=== PATIENT | female | born 1990 | race Caucasian/White ===

== ENCOUNTER 2017-08-31 09:16 | Inpatient (IN) | payer BC ==
[2017-08-31] MEDS ORDERED: Carboprost Tromethamine 250 MCG/1 ML Amp IM PRN (12:19)
[2017-08-31] MEDS ORDERED: Butorphanol 1 MG/ML SDV IVPUSH PRN (12:19)
[2017-08-31] MEDS ORDERED: Lidocaine 1% 50 ML MDV INJECT PRN (12:19)
[2017-08-31] MEDS ORDERED: Sodium Chloride 0.9% 10 ML Syringe FLUSH PRN (12:19)
[2017-08-31] MEDS ORDERED: Sodium Chloride 0.9% 2.5 ML Syringe FLUSH PRN (12:19)
[2017-08-31] MEDS ORDERED: Tranexamic Acid 1,000 MG in Sodium Chloride 0.9% 100 ML IV PRN (12:19)
[2017-08-31] MEDS ORDERED: Nalbuphine 10 MG/1 ML Vial IVPUSH PRN (12:19)
[2017-08-31] MEDS ORDERED: Methylergonovine 0.2 MG/1 ML Amp IM PRN (12:19)
[2017-08-31] MEDS ORDERED: Misoprostol 200 MCG Tab PO PRN (12:19)
[2017-08-31] MEDS ORDERED: Water For Irrigation,Sterile 1,000 ML Container IRR PRN (12:19)
[2017-08-31] MEDS ORDERED: Misoprostol 25 MCG (1/4 of 100 MCG) Tab PO ONE (12:21)
[2017-08-31] MEDS ORDERED: Terbutaline 1 MG/ML SDV SUBCUT PRN (12:21)
[2017-08-31] MEDS ORDERED: Oxytocin/0.9 % Sodium Chloride 30 UNIT/500 ML BAG IV SCH (12:30)
[2017-08-31] MEDS ORDERED: Lactated Ringers 1,000 ML IV SCH (12:30)
[2017-08-31] MEDS: Misoprostol 25 MCG (1/4 of 100 MCG) Tab VAG SCH ×2 (13:13→13:16)
--- NOTE | 2017-08-31 13:22 | PCM.LDHP ---
L&D History of Present Illness - General Date of Service: 08/31/17 Admit Problem/Dx: Patient Status Order with Admit Dx/Problem 08/31/17 12:19 Patient Status [ADT] Routine Admission Diagnosis/Problem Admission Diagnosis/Problem Source of Information: Patient History Limitations: Reports: No Limitations - History of Present Illness Improves with: Reports: None Worsens with: Reports: None Associated Symptoms: Reports: N - Related Data Allergies/Adverse Reactions: Allergies Allergy/AdvReac Type Severity Reaction Status Date / Time No Known Allergies Allergy Verified 07/22/17 12:32 Social & Family History - Tobacco Use Smoking Status *Q: Former Smoker Used Tobacco, but Quit: Yes Month Tobacco Last Used: 2015 Second Hand Smoke Exposure: Yes - Caffeine Use Caffeine Use: Reports: Soda - Recreational Drug Use Recreational Drug Use: No H&P Review of Systems - Review of Systems: Review Of Systems: See Below General: Reports: No Symptoms HEENT: Reports: No Symptoms Pulmonary: Reports: No Symptoms Cardiovascular: Reports: No Symptoms Gastrointestinal: Reports: No Symptoms Genitourinary: Reports: No Symptoms Musculoskeletal: Reports: No Symptoms Skin: Reports: No Symptoms Psychiatric: Reports: No Symptoms Neurological: Reports: No Symptoms Hematologic/Lymphatic: Reports: No Symptoms Immunologic: Reports: No Symptoms L&D Exam - Exam Exam: See Below - Vital Signs Weight: 131.995 kg - OB Specific Contraction Intensity: Mild Movement: Active Heart Tones: Present Presentation: Vertex - Espinosa Score Espinosa Score Cervix Position: Midposition Espinosa Score Consistency: Medium [place] Score Effacement: 51-70% Espinosa Score Dilation: 1-2 cm Espinosa Score Infant's Station: -2 Espinosa Score Total: 6 - Exam General: Alert, Oriented HEENT: PERRLA, Conjunctiva Clear, EACs Clear, EOMI, Hearing Intact, Mucosa Moist & [place], Nares Patent, Normal Nasal Septum, Posterior Pharynx Clear, TMs Clear Neck: Supple, Trachea Midline Lungs: Clear to Auscultation, Normal Respiratory Effort Cardiovascular: Regular Rate, Regular Rhythm GI/Abdominal Exam: Normal Bowel Sounds, Soft, Non-Tender, No Organomegaly, No Distention, No Abnormal Bruit, No Mass, Pelvis Stable Rectal Exam: Normal Exam, Normal Rectal Tone Genitourinary: Normal external exam, Normal bimanual exam, Normal speculum exam Back Exam: Normal Inspection, Full Range of Motion Extremities: Normal Inspection, Normal Range of Motion, Non-Tender, No Pedal Edema, Normal Capillary Refill Skin: Warm, Dry, Intact Neurological: Cranial Nerves Intact, Reflexes Equal Bilateral Psychiatric: Alert, Normal Affect, Normal Mood - Patient Data Lab Results Last 24 hrs: Laboratory Results - last 24 hr 08/31/17 Range/Units 12:52 WBC 12.17 H (4.0-11.0) K/uL RBC 4.48 (4.30-5.90) M/uL Hgb 11.7 L (12.0-16.0) g/dL Hct 36.2 (36.0-46.0) % MCV 80.8 (80.0-98.0) fL MCH 26.1 L (27.0-32.0) pg MCHC 32.3 (31.0-37.0) g/dL RDW Std Deviation 42.4 (28.0-62.0) fl RDW Coeff of Enoc 14 (11.0-15.0) % Plt Count 276 (150-400) K/uL MPV 9.60 (7.40-12.00) fL Nucleated RBC % 0.0 /100WBC Nucleated RBCs # 0 K/uL Result Diagrams: 08/31/17 12:52 Problem List Initiated/Reviewed/Updated: Yes Orders Last 24hrs: Active Orders 24 hr Category Date Time Status Patient Status [ADT] Routine ADT 08/31/17 12:19 Active Bedrest Bathroom Privileges [RC] ASDIRECTED Care 08/31/17 12:21 Active Communication Order [RC] ASDIRECTED Care 08/31/17 12:21 Active Communication Order [RC] ASDIRECTED Care 08/31/17 12:21 Active Communication Order [RC] ASDIRECTED Care 08/31/17 12:21 Active Heart Tones [RC] CONTINUOUS Care 08/31/17 12:19 Active Non Stress Test [RC] PER UNIT ROUTINE Care 08/31/17 12:19 Active May Shower [RC] ASDIRECTED Care 08/31/17 12:19 Active Notify Provider [RC] PRN Care 08/31/17 12:19 Active Notify Provider [RC] PRN Care 08/31/17 12:21 Active Notify Provider [RC] PRN Care 08/31/17 12:21 Active Notify Provider [RC] STAT Care 08/31/17 12:21 Active Oxygen Therapy [RC] ASDIRECTED Care 08/31/17 12:21 Active Up ad Leydi [RC] ASDIRECTED Care 08/31/17 12:19 Active Vaginal Exam [RC] PRN Care 08/31/17 12:19 Active Vaginal Exam [RC] PRN Care 08/31/17 12:21 Active Vital Signs [RC] PER UNIT ROUTINE Care 08/31/17 12:19 Active Vital Signs [RC] PER UNIT ROUTINE Care 08/31/17 12:21 Active Regular Diet [DIET] Diet 08/31/17 Lunch Active TYPE AND SCREEN [BBK] Routine Lab 08/31/17 12:52 Received Butorphanol [Stadol] Med 08/31/17 12:19 Active 1 mg IVPUSH Q1H PRN Carboprost Tromethamine [Hemabate DS] Med 08/31/17 12:19 Active 250 mcg IM ASDIRECTED PRN Lactated Ringers [Ringers, Lactated] 1,000 ml Med 08/31/17 12:30 Active IV ASDIRECTED Lidocaine 1% [Xylocaine 1%] Med 08/31/17 12:19 Active 50 ml INJECT .ONCE PRN Methylergonovine [Methergine] Med 08/31/17 12:19 Active 0.2 mg IM ASDIRECTED PRN Misoprostol [Cytotec] Med 08/31/17 12:19 Active 200 mcg PO .ONCE PRN Misoprostol [Cytotec] Med 08/31/17 12:30 Active 25 mcg VAG .ONCE Misoprostol [Cytotec] Med 08/31/17 12:21 Active 25 mcg VAG Q4H PRN Nalbuphine [Nubain] Med 08/31/17 12:19 Active 10 mg IVPUSH Q1H PRN Oxytocin/0.9 % Sodium Chloride [Oxytocin 30 Unit/500 ML Med 08/31/17 12:30 Active -NS] 30 unit in 500 ml IV TITRATE Sodium Chloride 0.9% [Saline Flush] Med 08/31/17 12:19 Active 10 ml FLUSH ASDIRECTED PRN Sodium Chloride 0.9% [Saline Flush] Med 08/31/17 12:19 Active 2.5 ml FLUSH ASDIRECTED PRN Terbutaline [Brethine] Med 08/31/17 12:21 Active 0.25 mg SUBCUT ASDIRECTED PRN Tranexamic Acid [Cyklokapron] 1,000 mg Med 08/31/17 12:19 Active Sodium Chloride 0.9% [Normal Saline] 100 ml IV ONETIME Water For Irrigation,Sterile [Sterile Water for Med 08/31/17 12:19 Active Irrigation] 1,000 ml IRR ASDIRECTED PRN Scalp Electrode [WOMSER] Per Unit Routine Oth 08/31/17 12:19 Ordered Medication Administration Instruction [OM.PC] Q3H Oth 08/31/17 12:30 Ordered Peripheral IV Insertion Adult [OM.PC] Routine Oth 08/31/17 12:19 Ordered Resuscitation Status Routine Resus Stat 08/31/17 12:19 Ordered Medication Orders Butorphanol Tartrate (Stadol) 1 mg IVPUSH Q1H PRN PRN Reason: Pain Carboprost Tromethamine (Hemabate Ds) 250 mcg IM ASDIRECTED PRN PRN Reason: Post Hemorrhage Lactated Ringer's (Ringers, Lactated) 1,000 mls @ 150 mls/hr IV ASDIRECTED LILIA Tranexamic Acid 1,000 mg/ (Sodium Chloride) 110 mls @ 660 mls/hr IV ONETIME PRN PRN Reason: Bleeding Oxytocin/Sodium Chloride (Oxytocin 30 Unit/500 Ml-Ns) 30 unit in 500 mls @ 2 mls/hr IV TITRATE LILIA; 2 MUNITS/MIN PRN Reason: Protocol Lidocaine HCl (Xylocaine 1%) 50 ml INJECT .ONCE PRN PRN Reason: Laceration repair Methylergonovine Maleate (Methergine) 0.2 mg IM ASDIRECTED PRN PRN Reason: Post Hemorrhage Misoprostol (Cytotec) 200 mcg PO .ONCE PRN PRN Reason: Post Hemorrhage Misoprostol (Cytotec) 25 mcg VAG .ONCE LILIA Last Admin: 08/31/17 13:16 Dose: 25 mcg Admin: 08/31/17 13:13 Dose: 25 mcg Misoprostol (Cytotec) 25 mcg VAG Q4H PRN PRN Reason: Cervical Ripening Nalbuphine HCl (Nubain) 10 mg IVPUSH Q1H PRN PRN Reason: Pain (severe 7-10) Sodium Chloride (Saline Flush) 10 ml FLUSH ASDIRECTED PRN PRN Reason: Keep Vein Open Sodium Chloride (Saline Flush) 2.5 ml FLUSH ASDIRECTED PRN PRN Reason: Keep Vein Open Sterile Water (Sterile Water For Irrigation) 1,000 ml IRR ASDIRECTED PRN PRN Reason: delivery Terbutaline Sulfate (Brethine) 0.25 mg SUBCUT ASDIRECTED PRN PRN Reason: Tacysystole Assessment/Plan Comment:: Intrauterine 38 weeks she have a previous demise the patient is admitted for elective induction without planning to use Cytotec and Pitocin as per protocol and the patient can have epidural if she establish in labor and if she need it
--- NOTE | 2017-08-31 16:55 | PCM.PREANE ---
Preanesthetic Assessment - Procedure Proposed Procedure: labor epidural /induction - Anesthesia/Transfusion/Family Hx Anesthesia History: Prior Anesthesia Without Reaction Family History of Anesthesia Reaction: No Transfusion History: No Prior Transfusion(s) - Review of Systems Other: Reports: None - Physical Assessment Height: 5 ft 3 in Weight: 131.995 kg ASA Class: 2 Mental Status: Alert & Oriented x3 Airway Class: Mallampati = 1 Dentition: Reports: Normal Dentition Thyro-Mental Finger Breadths: 3 Mouth Opening Finger Breadths: 3 ROM/Head Extension: Full - Lab Values: Laboratory Last Values WBC 12.17 K/uL (4.0-11.0) H 08/31/17 12:52 RBC 4.48 M/uL (4.30-5.90) 08/31/17 12:52 Hgb 11.7 g/dL (12.0-16.0) L 08/31/17 12:52 Hct 36.2 % (36.0-46.0) 08/31/17 12:52 MCV 80.8 fL (80.0-98.0) 08/31/17 12:52 MCH 26.1 pg (27.0-32.0) L 08/31/17 12:52 MCHC 32.3 g/dL (31.0-37.0) 08/31/17 12:52 RDW Std Deviation 42.4 fl (28.0-62.0) 08/31/17 12:52 RDW Coeff of Enoc 14 % (11.0-15.0) 08/31/17 12:52 Plt Count 276 K/uL (150-400) 08/31/17 12:52 MPV 9.60 fL (7.40-12.00) 08/31/17 12:52 Nucleated RBC % 0.0 /100WBC 08/31/17 12:52 Nucleated RBCs # 0 K/uL 08/31/17 12:52 Blood Type O POSITIVE 08/31/17 12:52 Antibody Screen NEGATIVE 08/31/17 12:52 - Allergies Allergies/Adverse Reactions: Allergies Allergy/AdvReac Type Severity Reaction Status Date / Time No Known Allergies Allergy Verified 07/22/17 12:32 - Blood Blood Available: Yes Product(s) Available: PRBC - Acknowledgements Anesthesia Type Planned: Epidural Pt an Appropriate Candidate for the Planned Anesthesia: Yes Alternatives and Risks of Anesthesia Discussed w Pt/Guardian: Yes Pt/Guardian Understands and Agrees with Anesthesia Plan: Yes PreAnesthesia Questionnaire Gastrointestinal History: Reports: Cholelithiasis ROAD CONSULTANT History: Reports: , Spontaneous Endocrine/Metabolic History: Reports: Obesity/BMI 30+ - Infectious Disease History Infectious Disease History: Reports: Chicken Pox - Past Surgical History GI Surgical History: Reports: Cholecystectomy Female Surgical History: Reports: D&C - SUBSTANCE USE Smoking Status *Q: Former Smoker Tobacco Use Within Last Twelve Months: No Second Hand Smoke Exposure: Yes Recreational Drug Use History: No - CURRENT (IN HOUSE) MEDS Current Meds: Current Medications Butorphanol Tartrate (Stadol) 1 mg IVPUSH Q1H PRN PRN Reason: Pain Carboprost Tromethamine (Hemabate Ds) 250 mcg IM ASDIRECTED PRN PRN Reason: Post Hemorrhage Lactated Ringer's (Ringers, Lactated) 1,000 mls @ 150 mls/hr IV ASDIRECTED LILIA Tranexamic Acid 1,000 mg/ (Sodium Chloride) 110 mls @ 660 mls/hr IV ONETIME PRN PRN Reason: Bleeding Oxytocin/Sodium Chloride (Oxytocin 30 Unit/500 Ml-Ns) 30 unit in 500 mls @ 2 mls/hr IV TITRATE LILIA; 2 MUNITS/MIN PRN Reason: Protocol Lidocaine HCl (Xylocaine 1%) 50 ml INJECT .ONCE PRN PRN Reason: Laceration repair Methylergonovine Maleate (Methergine) 0.2 mg IM ASDIRECTED PRN PRN Reason: Post Hemorrhage Misoprostol (Cytotec) 200 mcg PO .ONCE PRN PRN Reason: Post Hemorrhage Misoprostol (Cytotec) 25 mcg VAG .ONCE LILIA Last Admin: 08/31/17 13:16 Dose: 25 mcg Misoprostol (Cytotec) 25 mcg VAG Q4H PRN PRN Reason: Cervical Ripening Nalbuphine HCl (Nubain) 10 mg IVPUSH Q1H PRN PRN Reason: Pain (severe 7-10) Sodium Chloride (Saline Flush) 10 ml FLUSH ASDIRECTED PRN PRN Reason: Keep Vein Open Sodium Chloride (Saline Flush) 2.5 ml FLUSH ASDIRECTED PRN PRN Reason: Keep Vein Open Sterile Water (Sterile Water For Irrigation) 1,000 ml IRR ASDIRECTED PRN PRN Reason: delivery Terbutaline Sulfate (Brethine) 0.25 mg SUBCUT ASDIRECTED PRN PRN Reason: Tacysystole Discontinued Medications Misoprostol (Cytotec) 25 mcg PO ONETIME ONE Stop: 08/31/17 12:22 Last Admin: 08/31/17 13:18 Dose: 25 mcg
[2017-08-31] MEDS: Misoprostol 25 MCG (1/4 of 100 MCG) Tab VAG PRN ×2 (17:34→22:16)
[2017-08-31] MEDS: Misoprostol 25 MCG (1/4 of 100 MCG) Tab PO PRN ×2 (17:34→22:16)
[2017-08-31] MEDS ORDERED: Ampicillin 2 GM in Sodium Chloride 0.9% 100 ML IV ONE (18:00)
[2017-08-31] MEDS ORDERED: NIFEdipine 30 MG Tab.ER PO ONE (18:56)
[2017-08-31] MEDS: Ampicillin 1 GM in Sodium Chloride 0.9% 50 ML IV SCH (22:15)
[2017-09-01] MEDS ORDERED: Ropivacaine 0.2% 2 MG/ML 20 ML SDV ONE (00:48)
[2017-09-01] MEDS: Ampicillin 1 GM in Sodium Chloride 0.9% 50 ML IV SCH ×4 (03:10→22:16)
[2017-09-01] MEDS ORDERED: Lanolin 100% Cream 7 GM Tube TOP PRN (09:16)
[2017-09-01] MEDS ORDERED: Benzocaine/Menthol 20%-0.5% Spray 78 GM Cannister TOP PRN (09:16)
[2017-09-01] MEDS ORDERED: Witch Hazel Medicated Pads 40/Jar TOP PRN (09:16)
[2017-09-01] MEDS ORDERED: Docusate Sodium 100 MG Cap PO PRN (09:16)
[2017-09-01] MEDS ORDERED: Bisacodyl 10 MG Supp RECTAL PRN (09:16)
[2017-09-01] MEDS ORDERED: Ibuprofen 400 MG Tab PO PRN (09:16)
[2017-09-01] MEDS ORDERED: oxyCODONE 5 MG Tab PO PRN (09:16)
[2017-09-01] MEDS ORDERED: Acetaminophen 500 MG Tab PO PRN ×2 (09:16)
[2017-09-01] MEDS: Ibuprofen 800 MG Tab PO PRN ×2 (11:07→18:31)
--- NOTE | 2017-09-01 11:11 | OR ---
SURGEON: Te Schmitt MD DATE OF PROCEDURE: Ms. Edmond is a 27-year-old female. She had a previous demise. She is followed in our clinic in this and she was following according to high- risk protocol and she had repeated normal NST. She was admitted on 08/31/2017, for elective induction at 38 weeks plus. The patient responded to Cytotec induction. She required 3 dose and she has continued to have contraction on her own. She had epidural anesthesia for labor analgesia. The heart rate was category 1 until the patient became complete-complete and she started having some variable deceleration. The patient, at the time where I examined her at 0800 this morning of 09/01, she was complete-complete, +1 to +2 station and she was occiput posterior. The patient commenced pushing and with the aid of her adequate pushing, the patient was unable to spin or rotate the fetus. I suggested to do a Kiwi vacuum extraction, which was used and then the patient was able to accomplish a vaginal with occiput posterior presentation and the fetus was delivered and was limp, required resuscitation and oxygen. score is not available at this time, but the fetus has responded very well to resuscitation and he started crying spontaneously and heart rate was above 100 through the entire process. The placenta delivered spontaneous, complete, and intact. ESTIMATED BLOOD LOSS: 250-300 mL. There was a very minimum perineal laceration, is not bleeding and does not require suturing. There was no complication in this labor and . ISAÍAS / MECHE /[id number]
--- NOTE | 2017-09-01 13:34 | PCM48HPAN ---
Post Anesthesia Note - EVALUATION WITHIN 48HRS OF ANESTHETIC Vital Signs in Normal Range: Yes Patient Participated in Evaluation: Yes Respiratory Function Stable: Yes Airway Patent: Yes Cardiovascular Function Stable: Yes Hydration Status Stable: Yes Pain Control Satisfactory: Yes Nausea and Vomiting Control Satisfactory: Yes Mental Status Recovered: Yes - COMMENTS/OBSERVATIONS Free Text/Narrative:: Pt up in a wheelchair and preparing to transfer to a new room. Pt has no complaints. No anesthesia problems noted.
[2017-09-02] MEDS: Ampicillin 1 GM in Sodium Chloride 0.9% 50 ML IV SCH ×2 (02:38→08:53)
[2017-09-02] MEDS: Ibuprofen 800 MG Tab PO PRN (07:27)
[2017-09-02] MEDS ORDERED: Measles, Mumps & Rubella Vaccine 0.5 ML SDV SUBCUT ONE (08:39)
--- NOTE | 2017-09-02 08:40 | PCM.PNPP ---
- General Info Date of Service: 09/02/17 Functional Status: Reports: Pain Controlled - Review of Systems General: Reports: No Symptoms HEENT: Reports: No Symptoms Pulmonary: Reports: No Symptoms Cardiovascular: Reports: No Symptoms Gastrointestinal: Reports: No Symptoms Genitourinary: Reports: No Symptoms Musculoskeletal: Reports: No Symptoms Skin: Reports: No Symptoms Neurological: Reports: No Symptoms Psychiatric: Reports: No Symptoms - General Info Date of Service: 09/02/17 - Patient Data Vital Signs - Most Recent: Last Vital Signs Temp 36.8 C 09/02/17 04:00 Pulse 97 09/02/17 04:00 Resp 18 09/02/17 04:00 BP 117/85 09/02/17 04:00 Pulse Ox 95 09/02/17 04:00 Weight - Most Recent: 131.995 kg Lab Results - Last 24 Hours: Laboratory Results - last 24 hr 09/02/17 Range/Units 05:43 Hgb 11.0 L (12.0-16.0) g/dL Hct 34.0 L (36.0-46.0) % Med Orders - Current: Current Medications Acetaminophen (Tylenol Extra Strength) 500 mg PO Q4H PRN PRN Reason: Pain Acetaminophen (Tylenol Extra Strength) 1,000 mg PO Q4H PRN PRN Reason: Pain Benzocaine/Menthol (Dermoplast Pain Relief 20%-0.5% [place]) 78 gm TOP ASDIRECTED PRN PRN Reason: Perineal Comfort Measure Last Admin: 09/01/17 11:09 Dose: 1 can Bisacodyl (Dulcolax) 10 mg RECTAL .ONCE PRN PRN Reason: Constipation Butorphanol Tartrate (Stadol) 1 mg IVPUSH Q1H PRN PRN Reason: Pain Carboprost Tromethamine (Hemabate Ds) 250 mcg IM ASDIRECTED PRN PRN Reason: Post Hemorrhage Docusate Sodium (Colace) 100 mg PO BID PRN PRN Reason: Constipation Last Admin: 09/01/17 11:06 Dose: 100 mg Emollient Ointment (Lansinoh Hpa) 0 gm TOP ASDIRECTED PRN PRN Reason: Sore Nipples Lactated Ringer's (Ringers, Lactated) 1,000 mls @ 150 mls/hr IV ASDIRECTED LILIA Last Admin: 08/31/17 18:09 Dose: 150 mls/hr Tranexamic Acid 1,000 mg/ (Sodium Chloride) 110 mls @ 660 mls/hr IV ONETIME PRN PRN Reason: Bleeding Oxytocin/Sodium Chloride (Oxytocin 30 Unit/500 Ml-Ns) 30 unit in 500 mls @ 2 mls/hr IV TITRATE LILIA; 2 MUNITS/MIN PRN Reason: Protocol Last Admin: 09/01/17 09:08 Dose: 350 munits/min, 350 mls/hr Ampicillin Sodium 1 gm/ Sodium (Chloride) 50 mls @ 100 mls/hr IV Q4H LILIA Last Admin: 09/02/17 02:38 Dose: Not Given Ibuprofen (Motrin) 400 mg PO Q4H PRN PRN Reason: Pain Ibuprofen (Motrin) 800 mg PO Q6H PRN PRN Reason: Pain Last Admin: 09/02/17 07:27 Dose: 800 mg Lidocaine HCl (Xylocaine 1%) 50 ml INJECT .ONCE PRN PRN Reason: Laceration repair Methylergonovine Maleate (Methergine) 0.2 mg IM ASDIRECTED PRN PRN Reason: Post Hemorrhage Misoprostol (Cytotec) 200 mcg PO .ONCE PRN PRN Reason: Post Hemorrhage Misoprostol (Cytotec) 25 mcg VAG .ONCE LILIA Last Admin: 08/31/17 13:16 Dose: 25 mcg Misoprostol (Cytotec) 25 mcg VAG Q4H PRN PRN Reason: Cervical Ripening Last Admin: 08/31/17 22:16 Dose: 25 mcg Misoprostol (Cytotec) 25 mcg PO Q4H PRN PRN Reason: Other Last Admin: 08/31/17 22:16 Dose: 25 mcg Nalbuphine HCl (Nubain) 10 mg IVPUSH Q1H PRN PRN Reason: Pain (severe 7-10) Oxycodone HCl (Oxycodone) 5 mg PO Q2H PRN PRN Reason: Pain Sodium Chloride (Saline Flush) 10 ml FLUSH ASDIRECTED PRN PRN Reason: Keep Vein Open Sodium Chloride (Saline Flush) 2.5 ml FLUSH ASDIRECTED PRN PRN Reason: Keep Vein Open Sterile Water (Sterile Water For Irrigation) 1,000 ml IRR ASDIRECTED PRN PRN Reason: delivery Terbutaline Sulfate (Brethine) 0.25 mg SUBCUT ASDIRECTED PRN PRN Reason: Tacysystole Carl Gandhi (Tucks) 1 pad TOP ASDIRECTED PRN PRN Reason: comfort care Discontinued Medications Ampicillin Sodium 2 gm/ Sodium (Chloride) 100 mls @ 200 mls/hr IV ONETIME ONE Stop: 08/31/17 18:29 Last Admin: 08/31/17 18:10 Dose: 200 mls/hr Fentanyl/Bupivacaine HCl ([id number]-[id number] 2 Mcg/Ml-0.125%) Confirm Administered Dose 100 mls @ as directed EP .STK-MED ONE Stop: 09/01/17 00:49 Last Admin: 09/01/17 04:44 Dose: Not Given Fentanyl/Bupivacaine HCl ([id number] 2 Mcg/Ml-0.125%) Confirm Administered Dose 100 mls @ as directed EP .STK-MED ONE Stop: 09/01/17 06:51 Last Admin: 09/01/17 19:53 Dose: Not Given Misoprostol (Cytotec) 25 mcg PO ONETIME ONE Stop: 08/31/17 12:22 Last Admin: 08/31/17 13:18 Dose: 25 mcg Nifedipine (Procardia Xl) 30 mg PO ONETIME ONE Stop: 08/31/17 18:57 Last Admin: 08/31/17 19:22 Dose: 30 mg Ropivacaine (Naropin 0.2%) Confirm Administered Dose 20 ml .ROUTE .STK-MED ONE Stop: 09/01/17 00:49 Last Admin: 09/01/17 04:44 Dose: Not Given - Interaction Infant Disposition, : Ma[place] in Room with Family Infant Interaction: Holding Infant Infant Feeding: Bottle Fed Support Person: , Mother - Recovery Exam Fundal Tone: Firm Fundal Level: 1 Fingerbreadths Below Umbilicus Fundal Placement: Midline Lochia Amount: Scant Lochia Color: Rubra/Red Perineum Description: Intact, Minimal Bruising/Swelling Episiotomy/Laceration: None Bladder Status: Voiding - Exam General: Alert, Oriented HEENT: Pupils Equal Neck: Supple Lungs: Clear to Auscultation, Normal Respiratory Effort Cardiovascular: Regular Rate, Regular Rhythm GI/Abdominal Exam: Normal Bowel Sounds, Soft, Non-Tender, No Organomegaly, No Distention, No Abnormal Bruit, No Mass, Pelvis Stable Extremities: Normal Inspection, Normal Range of Motion, Non-Tender, No Pedal Edema, Normal Capillary Refill Skin: Warm, Dry, Intact Wound/Incisions: Healing Well Neurological: No New Focal Deficit Psy/Mental Status: Alert, Normal Affect, Normal Mood - Problem List Review Problem List Initiated/Reviewed/Updated: Yes - My Orders Last 24 Hours: My Active Orders 09/01/17 09:16 Patient Status [ADT] Routine May Shower [RC] ASDIRECTED Up ad Leydi [RC] ASDIRECTED Vital Signs [RC] PER UNIT ROUTINE Acetaminophen [Tylenol Extra Strength] 1,000 mg PO Q4H PRN Acetaminophen [Tylenol Extra Strength] 500 mg PO Q4H PRN Benzocaine/Menthol [Dermoplast Pain Relief 20%-0.5% [place]] 78 gm TOP ASDIRECTED PRN Bisacodyl [Dulcolax] 10 mg RECTAL .ONCE PRN Docusate Sodium [Colace] 100 mg PO BID PRN Ibuprofen [Motrin] 400 mg PO Q4H PRN Ibuprofen [Motrin] 800 mg PO Q6H PRN Lanolin [Lansinoh HPA] See Dose Instructions TOP ASDIRECTED PRN Witch Oksana [Tucks] 1 pad TOP ASDIRECTED PRN oxyCODONE 5 mg PO Q2H PRN Assess Lochia [WOMSER] Per Unit Routine Assess Uterine Involution [WOMSER] Per Unit Routine Peripheral IV Discontinue [OM.PC] Routine - Plan Plan:: Intrauterine 38 weeks she have a previous demise the patient is admitted for elective induction without planning to use Cytotec and Pitocin as per protocol and the patient can have epidural if she establish in labor and if she need it
== END 2017-09-02 17:50 | disposition home or self-care (01) | DRG 560 ==
LOC: MW.OB 09:16 → OBSVTOIN 09-01 09:16
PROVIDERS: ADMIT Obstetrics & Gynecology; ATTEND Obstetrics & Gynecology
PROC: 3E0P7VZ Introduction of Hormone into Female Reproductive, Via Natural or Artificial Opening (ICD-10-PCS; 2017-08-31)
PROC: 10D07Z6 Extraction of Products of Conception, Vacuum, Via Natural or Artificial Opening (ICD-10-PCS; principal; 2017-09-01)
PROC: 00HU33Z Insertion of Infusion Device into Spinal Canal, Percutaneous Approach (ICD-10-PCS; 2017-09-01)
PROC: 3E0R3BZ Introduction of Anesthetic Agent into Spinal Canal, Percutaneous Approach (ICD-10-PCS; 2017-09-01)
DX: O32.8XX0 Maternal care for other malpresentation of fetus, not applicable or unspecified (principal); O76 Abnormality in fetal heart rate and rhythm complicating labor and delivery; O99.214 Obesity complicating childbirth; E66.9 Obesity, unspecified; Z68.43 Body mass index [BMI] 50.0-59.9, adult; Z3A.38 38 weeks gestation of pregnancy; Z37.0 Single live birth; Z87.891 Personal history of nicotine dependence
CPT/HCPCS: 01967; 36415; 51702; 59025; 59409; 85014; 85018; 85027; 86850; 86900; 86901; 90471; 90707; A9270-GY; J0290; J2590; J7030; J7050; J7120

== ENCOUNTER 2019-03-20 00:11 | Inpatient (IN) | payer BC ==
[2019-03-20] MEDS ORDERED: Terbutaline 1 MG/ML SDV SUBCUT PRN (00:28)
[2019-03-20] MEDS ORDERED: Sodium Chloride 0.9% 10 ML Syringe FLUSH PRN (00:28)
[2019-03-20] MEDS ORDERED: Carboprost Tromethamine 250 MCG/1 ML Amp IM PRN (00:28)
[2019-03-20] MEDS ORDERED: Tranexamic Acid 1,000 MG in Sodium Chloride 0.9% 100 ML IV PRN (00:28)
[2019-03-20] MEDS ORDERED: Butorphanol 1 MG/ML SDV IVPUSH PRN (00:28)
[2019-03-20] MEDS ORDERED: Sodium Chloride 0.9% 2.5 ML Syringe FLUSH PRN (00:28)
[2019-03-20] MEDS ORDERED: Methylergonovine 0.2 MG/1 ML Amp IM PRN (00:28)
[2019-03-20] MEDS ORDERED: Ondansetron 4 MG/2 ML SDV IVPUSH PRN (00:28)
[2019-03-20] MEDS ORDERED: Water For Irrigation,Sterile 1,000 ML Container IRR PRN (00:28)
[2019-03-20] MEDS ORDERED: Misoprostol 200 MCG Tab PO PRN (00:28)
[2019-03-20] MEDS ORDERED: Sodium Chloride 0.9% 10 ML SDV IV PRN (00:28)
[2019-03-20] MEDS ORDERED: Nalbuphine 10 MG/1 ML Vial IVPUSH PRN (00:28)
[2019-03-20] MEDS ORDERED: Lidocaine 1% 50 ML MDV INJECT PRN (00:28)
[2019-03-20] MEDS ORDERED: Oxytocin/0.9 % Sodium Chloride 30 UNIT/500 ML BAG IV SCH ×2 (00:30)
[2019-03-20] MEDS ORDERED: Misoprostol 25 MCG (1/4 of 100 MCG) Tab VAG PRN ×2 (01:00→05:00)
[2019-03-20] MEDS ORDERED: Misoprostol 25 MCG (1/4 of 100 MCG) Tab PO PRN ×2 (01:00→05:00)
[2019-03-20] MEDS ORDERED: Ampicillin 2 GM in Sodium Chloride 0.9% 100 ML IV ONE (01:00)
[2019-03-20] MEDS: Lactated Ringers 1,000 ML IV SCH ×3 (01:10→16:33)
[2019-03-20] MEDS: Ampicillin 1 GM in Sodium Chloride 0.9% 50 ML IV SCH ×3 (05:52→13:28)
--- NOTE | 2019-03-20 08:33 | PCM.LDHP ---
L&D History of Present Illness - General Date of Service: 03/20/19 Admit Problem/Dx: Patient Status Order with Admit Dx/Problem 03/20/19 00:15 Patient Status [ADT] Routine Admission Diagnosis/Problem Admission Diagnosis/Problem 03/20/19 08:25 28yo EDC 04/02/2019 38 1/7wks IOL due to hx LGA and IUFD O+, RI, GBS pos. 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 Endocrine/Metabolic History: Reports: Obesity/BMI 30+ - Infectious Disease History Infectious Disease History: Reports: Chicken Pox - Past Surgical History GI Surgical History: Reports: Cholecystectomy Female Surgical History: Reports: D&C Social & Family History - Family History HEENT: Reports: Cataract, Retinal Detachment Cardiac: Reports: Arrhythmia, Heart Failure, Heart Valve Replacement, Hypertension, Pacemaker Respiratory: Reports: COPD GI: Reports: Cholelithiasis, Inflammatory Bowel Disease, Irritable Bowel Syndrome OBGYN: Reports: Musculoskeletal: Reports: Arthritis, RA Neurological: Reports: CVA, Dementia, TIA Psychiatric: Reports: ADHD, Anxiety Endocrine/Metabolic: Reports: Diabetes, type II, Obesity/MBI 30+ Oncologic: Reports: Bladder, Hodgkin's Lymphoma, Skin - Tobacco Use Smoking Status *Q: Never Smoker Second Hand Smoke Exposure: No - Caffeine Use Caffeine Use: Reports: Coffee, Soda - Recreational Drug Use Recreational Drug Use: No H&P Review of Systems - Review of Systems: Review Of Systems: See Below General: Reports: No Symptoms HEENT: Reports: No Symptoms Pulmonary: Reports: No Symptoms Cardiovascular: Reports: No Symptoms Gastrointestinal: Reports: No Symptoms Genitourinary: Reports: No Symptoms Musculoskeletal: Reports: No Symptoms Skin: Reports: No Symptoms Psychiatric: Reports: No Symptoms Neurological: Reports: No Symptoms Hematologic/Lymphatic: Reports: No Symptoms Immunologic: Reports: No Symptoms L&D Exam - Exam Exam: See Below - Vital Signs Weight: 133.81 kg - OB Specific Contraction Intensity: Mild Movement: Active Heart Tones: Present Heart Rate (FHR) Variability: Moderate (6-25 bmp) Presentation: Vertex Estimated Weight: 4000 - Espinosa Score Espinosa Score Cervix Position: Midposition Espinosa Score Consistency: Soft Espinosa Score Effacement: 31-50% Espinosa Score Dilation: 3-4 cm Espinosa Score 's Station: -2 Espinosa Score Total: 7 - Exam General: Alert, Oriented, Cooperative HEENT: Hearing Intact Lungs: Clear to Auscultation, Normal Respiratory Effort Cardiovascular: Regular Rate, Regular Rhythm, Normal S1, Normal S2 GI/Abdominal Exam: Soft, Non-Tender, Pelvis Stable Rectal Exam: Deferred Genitourinary: Normal external exam, Normal bimanual exam, Cervical dilitation, Cervical fluid Back Exam: Normal Inspection Extremities: Normal Inspection, Normal Range of Motion, Non-Tender, No Pedal Edema Skin: Warm, Dry, Intact Neurological: Cranial Nerves Intact, Strength Equal Bilateral, Normal Speech, Normal Tone, Sensation Intact Psychiatric: Alert, Normal Affect, Normal Mood - Patient Data Lab Results Last 24 hrs: Laboratory Results - last 24 hr 03/20/19 03/20/19 Range/Units 01:04 01:04 WBC 10.63 (4.0-11.0) K/uL RBC 4.29 L (4.30-5.90) M/uL Hgb 11.4 L (12.0-16.0) g/dL Hct 34.2 L (36.0-46.0) % MCV 79.7 L (80.0-98.0) fL MCH 26.6 L (27.0-32.0) pg MCHC 33.3 (31.0-37.0) g/dL RDW Std Deviation 39.1 (28.0-62.0) fl RDW Coeff of Enoc 14 (11.0-15.0) % Plt Count 163 (150-400) K/uL MPV 10.20 (7.40-12.00) fL Blood Type O POSITIVE Antibody Screen NEGATIVE Result Diagrams: 03/20/19 01:04 - Problem List (1) Supervision of normal IUP (intrauterine ) in multigravida SNOMED Code(s): 958240135, 756172062, 913413621 ICD Code: Z34.80 - ENCOUNTER FOR SUPRVSN OF NORMAL , UNSP TRIMESTER Status: Acute Priority: High Current Visit: Yes Qualifiers: Trimester: third trimester Qualified Code(s): Z34.83 - Encounter for supervision of other normal , third trimester Problem List Initiated/Reviewed/Updated: Yes Orders Last 24hrs: Active Orders 24 hr Category Date Time Status Patient Status [ADT] Routine ADT 03/20/19 00:15 Active Bedrest Bathroom Privileges [RC] ASDIRECTED Care 03/20/19 00:29 Active Communication Order [RC] ASDIRECTED Care 03/20/19 00:29 Active May Shower [RC] ASDIRECTED Care 03/20/19 00:29 Active Notify Provider [RC] PRN Care 03/20/19 00:29 Active Oxygen Therapy [RC] ASDIRECTED Care 03/20/19 00:29 Active Up ad Leydi [RC] ASDIRECTED Care 03/20/19 00:29 Active Vital Signs [RC] PER UNIT ROUTINE Care 03/20/19 00:29 Active Regular Diet [DIET] Diet 03/20/19 Breakfast Active Ampicillin 1 gm Med 03/20/19 05:00 Active Sodium Chloride 0.9% [Normal Saline] 50 ml IV Q4H Butorphanol [Stadol] Med 03/20/19 00:28 Active 1 mg IVPUSH Q1H PRN Carboprost Tromethamine [Hemabate DS] Med 03/20/19 00:28 Active 250 mcg IM ASDIRECTED PRN Lactated Ringers [Ringers, Lactated] 1,000 ml Med 03/20/19 00:30 Active IV ASDIRECTED Lidocaine 1% [Xylocaine 1%] Med 03/20/19 00:28 Active 50 ml INJECT ONETIME PRN Methylergonovine [Methergine] Med 03/20/19 00:28 Active 0.2 mg IM ASDIRECTED PRN Nalbuphine [Nubain] Med 03/20/19 00:28 Active 10 mg IVPUSH Q1H PRN Ondansetron [Zofran] Med 03/20/19 00:28 Active 4 mg IVPUSH Q6H PRN Oxytocin/0.9 % Sodium Chloride [Oxytocin 30 Unit/500 ML Med 03/20/19 00:30 Active -NS] 30 unit in 500 ml IV TITRATE Oxytocin/0.9 % Sodium Chloride [Oxytocin 30 Unit/500 ML Med 03/20/19 00:30 Active -NS] 30 unit in 500 ml IV TITRATE Sodium Chloride 0.9% [Normal Saline] Med 03/20/19 00:28 Active 10 ml IV ASDIRECTED PRN Sodium Chloride 0.9% [Saline Flush] Med 03/20/19 00:28 Active 10 ml FLUSH ASDIRECTED PRN Sodium Chloride 0.9% [Saline Flush] Med 03/20/19 00:28 Active 2.5 ml FLUSH ASDIRECTED PRN Terbutaline [Brethine] Med 03/20/19 00:28 Active 0.25 mg SUBCUT ASDIRECTED PRN Tranexamic Acid [Cyklokapron] 1,000 mg Med 03/20/19 00:28 Active Sodium Chloride 0.9% [Normal Saline] 100 ml IV ONETIME Water For Irrigation,Sterile [Sterile Water for Med 03/20/19 00:28 Active Irrigation] 1,000 ml IRR ASDIRECTED PRN miSOPROStol [Cytotec] Med 03/20/19 00:28 Active 200 mcg PO ONETIME PRN miSOPROStol [Cytotec] Med 03/20/19 01:00 Active 25 mcg PO ONETIME PRN miSOPROStol [Cytotec] Med 03/20/19 05:00 Active 25 mcg PO Q4H PRN miSOPROStol [Cytotec] Med 03/20/19 01:00 Active 25 mcg VAG ONETIME PRN miSOPROStol [Cytotec] Med 03/20/19 05:00 Active 25 mcg VAG Q4H PRN Scalp Electrode [WOMSER] Per Unit Routine Oth 03/20/19 00:29 Ordered Medication Administration Instruction [OM.PC] Q3H Oth 03/20/19 00:30 Ordered Peripheral IV Insertion Adult [OM.PC] Routine Oth 03/20/19 00:29 Ordered Resuscitation Status Routine Resus Stat 03/20/19 00:28 Ordered Medication Orders Butorphanol Tartrate (Stadol) 1 mg IVPUSH Q1H PRN PRN Reason: Pain Carboprost Tromethamine (Hemabate Ds) 250 mcg IM ASDIRECTED PRN PRN Reason: Post Hemorrhage Ampicillin Sodium 1 gm/ Sodium (Chloride) 50 mls @ 100 mls/hr IV Q4H [facility] Last Admin: 03/20/19 05:52 Dose: 100 mls/hr Lactated Ringer's (Ringers, Lactated) 1,000 mls @ 150 mls/hr IV ASDIRECTED [facility] Last Admin: 03/20/19 01:10 Dose: 150 mls/hr Oxytocin/Sodium Chloride (Oxytocin 30 Unit/500 Ml-Ns) 30 unit in 500 mls @ 999 mls/hr IV TITRATE [facility] Oxytocin/Sodium Chloride (Oxytocin 30 Unit/500 Ml-Ns) 30 unit in 500 mls @ 2 mls/hr IV TITRATE [facility]; Protocol Tranexamic Acid 1,000 mg/ (Sodium Chloride) 110 mls @ 660 mls/hr IV ONETIME PRN PRN Reason: Bleeding Lidocaine HCl (Xylocaine 1%) 50 ml INJECT ONETIME PRN PRN Reason: Laceration repair Methylergonovine Maleate (Methergine) 0.2 mg IM ASDIRECTED PRN PRN Reason: Post Hemorrhage Misoprostol (Cytotec) 200 mcg PO ONETIME PRN PRN Reason: Post Hemorrhage Misoprostol (Cytotec) 25 mcg VAG ONETIME PRN PRN Reason: Cervical Ripening Last Admin: 03/20/19 01:47 Dose: 25 mcg Misoprostol (Cytotec) 25 mcg VAG Q4H PRN PRN Reason: Cervical Ripening Last Admin: 03/20/19 06:16 Dose: 25 mcg Misoprostol (Cytotec) 25 mcg PO ONETIME PRN PRN Reason: Cervical Ripening Last Admin: 03/20/19 01:47 Dose: 25 mcg Misoprostol (Cytotec) 25 mcg PO Q4H PRN PRN Reason: Cervical Ripening Last Admin: 03/20/19 06:15 Dose: 25 mcg Nalbuphine HCl (Nubain) 10 mg IVPUSH Q1H PRN PRN Reason: Pain (severe 7-10) Ondansetron HCl (Zofran) 4 mg IVPUSH Q6H PRN PRN Reason: Nausea/Vomiting Sodium Chloride (Saline Flush) 10 ml FLUSH ASDIRECTED PRN PRN Reason: Keep Vein Open Sodium Chloride (Saline Flush) 2.5 ml FLUSH ASDIRECTED PRN PRN Reason: Keep Vein Open Sodium Chloride (Normal Saline) 10 ml IV ASDIRECTED PRN PRN Reason: IV Use Sterile Water (Sterile Water For Irrigation) 1,000 ml IRR ASDIRECTED PRN PRN Reason: delivery Terbutaline Sulfate (Brethine) 0.25 mg SUBCUT ASDIRECTED PRN PRN Reason: Tacysystole Assessment/Plan Comment:: IOL A: 28yo EDC 04/02/2019 38 1/7wks IOL due to hx LGA and IUFD O+, RI, GBS pos. SVE /-2 AROM clear P: Admit, pitocin, epidural prn, anticipate . Dr Schmitt in room for AROM.
[2019-03-20] MEDS ORDERED: fentaNYL 100 MCG/2 ML SDV ONE (12:11)
--- NOTE | 2019-03-20 13:04 | PCM.PREANE ---
Preanesthetic Assessment - Anesthesia/Transfusion/Family Hx Anesthesia History: Prior Anesthesia Without Reaction Family History of Anesthesia Reaction: No Transfusion History: No Prior Transfusion(s) Intubation History: Unknown - Review of Systems General: No Symptoms Pulmonary: No Symptoms Cardiovascular: No Symptoms Gastrointestinal: Abdominal Pain (labor pain) Neurological: No Symptoms Other: Reports: None - Physical Assessment Height: 5 ft 3.5 in Weight: 133.81 kg ASA Class: 2 Mental Status: Alert & Oriented x3 Airway Class: Mallampati = 2 Dentition: Reports: Normal Dentition Thyro-Mental Finger Breadths: 3 Mouth Opening Finger Breadths: 3 ROM/Head Extension: Full Lungs: Clear to Auscultation, Normal Respiratory Effort Cardiovascular: Regular Rate, Regular Rhythm - Lab Values: Laboratory Last Values WBC 10.63 K/uL (4.0-11.0) 03/20/19 01:04 RBC 4.29 M/uL (4.30-5.90) L 03/20/19 01:04 Hgb 11.4 g/dL (12.0-16.0) L 03/20/19 01:04 Hct 34.2 % (36.0-46.0) L 03/20/19 01:04 MCV 79.7 fL (80.0-98.0) L 03/20/19 01:04 MCH 26.6 pg (27.0-32.0) L 03/20/19 01:04 MCHC 33.3 g/dL (31.0-37.0) 03/20/19 01:04 RDW Std Deviation 39.1 fl (28.0-62.0) 03/20/19 01:04 RDW Coeff of Enoc 14 % (11.0-15.0) 03/20/19 01:04 Plt Count 163 K/uL (150-400) 03/20/19 01:04 MPV 10.20 fL (7.40-12.00) 03/20/19 01:04 Blood Type O POSITIVE 03/20/19 01:04 Antibody Screen NEGATIVE 03/20/19 01:04 - Allergies Allergies/Adverse Reactions: Allergies Allergy/AdvReac Type Severity Reaction Status Date / Time No Known Allergies Allergy Verified 02/27/19 14:51 - Blood Blood Available: No - Anesthesia Plan Pre-Op Medication Ordered: None - Acknowledgements Anesthesia Type Planned: Epidural Pt an Appropriate Candidate for the Planned Anesthesia: Yes Alternatives and Risks of Anesthesia Discussed w Pt/Guardian: Yes Pt/Guardian Understands and Agrees with Anesthesia Plan: Yes PreAnesthesia Questionnaire Gastrointestinal History: Reports: Cholelithiasis [employer] 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: , 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 Endocrine/Metabolic History: Reports: Obesity/BMI 30+ - Infectious Disease History Infectious Disease History: Reports: Chicken Pox - Past Surgical History GI Surgical History: Reports: Cholecystectomy Female Surgical History: Reports: D&C - SUBSTANCE USE Smoking Status *Q: Never Smoker Tobacco Use Within Last Twelve Months: No Second Hand Smoke Exposure: No Recreational Drug Use History: No - CURRENT (IN HOUSE) MEDS Current Meds: Current Medications Butorphanol Tartrate (Stadol) 1 mg IVPUSH Q1H PRN PRN Reason: Pain Carboprost Tromethamine (Hemabate Ds) 250 mcg IM ASDIRECTED PRN PRN Reason: Post Hemorrhage Ampicillin Sodium 1 gm/ Sodium (Chloride) 50 mls @ 100 mls/hr IV Q4H [facility] Last Admin: 03/20/19 09:28 Dose: 100 mls/hr Lactated Ringer's (Ringers, Lactated) 1,000 mls @ 150 mls/hr IV ASDIRECTED [facility] Last Admin: 03/20/19 01:10 Dose: 150 mls/hr Oxytocin/Sodium Chloride (Oxytocin 30 Unit/500 Ml-Ns) 30 unit in 500 mls @ 999 mls/hr IV TITRATE [facility] Oxytocin/Sodium Chloride (Oxytocin 30 Unit/500 Ml-Ns) 30 unit in 500 mls @ 2 mls/hr IV TITRATE [facility]; Protocol Last Admin: 03/20/19 10:17 Dose: 2 munits/min, 2 mls/hr Tranexamic Acid 1,000 mg/ (Sodium Chloride) 110 mls @ 660 mls/hr IV ONETIME PRN PRN Reason: Bleeding Lidocaine HCl (Xylocaine 1%) 50 ml INJECT ONETIME PRN PRN Reason: Laceration repair Methylergonovine Maleate (Methergine) 0.2 mg IM ASDIRECTED PRN PRN Reason: Post Hemorrhage Misoprostol (Cytotec) 200 mcg PO ONETIME PRN PRN Reason: Post Hemorrhage Misoprostol (Cytotec) 25 mcg VAG ONETIME PRN PRN Reason: Cervical Ripening Last Admin: 03/20/19 01:47 Dose: 25 mcg Misoprostol (Cytotec) 25 mcg VAG Q4H PRN PRN Reason: Cervical Ripening Last Admin: 03/20/19 06:16 Dose: 25 mcg Misoprostol (Cytotec) 25 mcg PO ONETIME PRN PRN Reason: Cervical Ripening Last Admin: 03/20/19 01:47 Dose: 25 mcg Misoprostol (Cytotec) 25 mcg PO Q4H PRN PRN Reason: Cervical Ripening Last Admin: 03/20/19 06:15 Dose: 25 mcg Nalbuphine HCl (Nubain) 10 mg IVPUSH Q1H PRN PRN Reason: Pain (severe 7-10) Ondansetron HCl (Zofran) 4 mg IVPUSH Q6H PRN PRN Reason: Nausea/Vomiting Sodium Chloride (Saline Flush) 10 ml FLUSH ASDIRECTED PRN PRN Reason: Keep Vein Open Sodium Chloride (Saline Flush) 2.5 ml FLUSH ASDIRECTED PRN PRN Reason: Keep Vein Open Sodium Chloride (Normal Saline) 10 ml IV ASDIRECTED PRN PRN Reason: IV Use Sterile Water (Sterile Water For Irrigation) 1,000 ml IRR ASDIRECTED PRN PRN Reason: delivery Terbutaline Sulfate (Brethine) 0.25 mg SUBCUT ASDIRECTED PRN PRN Reason: Tacysystole Discontinued Medications Fentanyl (Sublimaze) Confirm Administered Dose 100 mcg .ROUTE .STK-MED ONE Stop: 03/20/19 12:12 Ampicillin Sodium 2 gm/ Sodium (Chloride) 100 mls @ 200 mls/hr IV ONETIME ONE Stop: 03/20/19 01:29 Last Admin: 03/20/19 01:14 Dose: 200 mls/hr Fentanyl/Bupivacaine HCl (Laaezbvb-Ptngd-Es 2 Mcg/Ml-0.125%) Confirm Administered Dose 100 mls @ as directed .ROUTE .STK-MED ONE Stop: 03/20/19 12:11
[2019-03-20] MEDS ORDERED: Lidocaine HCl/EPINEPHrine 5 ML IJ ONE (17:14)
--- NOTE | 2019-03-20 17:26 | PCM.SN ---
- Free Text/Narrative Note: Called for a bolus due to breakthrough pain. 1.5% lidocaine with epinephrine 4 ml given-see RNs note for time. Patient about to deliver.
[2019-03-20] MEDS ORDERED: Lanolin 100% Cream 7 GM Tube TOP PRN (17:46)
[2019-03-20] MEDS ORDERED: Ibuprofen 800 MG Tab PO PRN (17:46)
[2019-03-20] MEDS ORDERED: Benzocaine/Menthol 20%-0.5% Spray 78 GM Cannister TOP PRN (17:46)
[2019-03-20] MEDS ORDERED: Docusate Sodium 100 MG Cap PO PRN (17:46)
[2019-03-20] MEDS ORDERED: Acetaminophen 500 MG Tab PO PRN ×2 (17:46)
[2019-03-20] MEDS ORDERED: oxyCODONE 5 MG Tab PO PRN (17:46)
[2019-03-20] MEDS ORDERED: Bisacodyl 10 MG Supp RECTAL PRN (17:46)
[2019-03-20] MEDS ORDERED: Ibuprofen 400 MG Tab PO PRN (17:46)
[2019-03-20] MEDS ORDERED: Witch Hazel Medicated Pads 40/Jar TOP PRN (17:46)
--- NOTE | 2019-03-20 17:57 | PCM.DEL ---
L & D Note - General Info Date of Service: 03/20/19 Mother's Due Date: 04/02/19 - Delivery Note Labor: Spontaneous Delivery Outcome: Livebirth Infant Delivery Method: Spontaneous Vaginal Delivery-Single Infant Delivery Mode: Spontaneous Presentation: Vertex Nuchal Cord: None Anesthesia Type: Epidural Amniotic Fluid Description: Clear Episiotomy Type: None Laceration: None Placenta: Intact, Spontaneous Cord: 3 Vessels Estimated Blood Loss: 150 Resuscitation Needed: No Score 1 min: 8 Score 5 min: 8 Second Stage Interventions: Reports: Pushing, Pulls Own Legs Back Delivery Comments (Free Text/Narrative):: of viable male. Head delivered with good pushing, shoulders and body followed easily. with spont cry placed on the pt abd with RN at for evaluation. Delayed cord clamping. Pitocin to IVF. Cord clamped and cut by FOB. Placenta delivered grossly intact. Inspection noted intact perineum. EBL 150cc. APGARS 8/8, Wt: pending bonding. Induction Criteria - Espinosa Score Espinosa Score Dilation: 3-4 cm Espinosa Score Effacement: 40-50% Espinosa Score Infant's Station: -2 Espinosa Score Consistency: Medium Espinosa Score Cervix Position: Midposition Espinosa Score Total: 6 Espinosa Score Presenting Part: Reports: Cephalic - Induction Gestational Age >/= 39 wks: Yes Medical Indication: History of IUFD Reassuring Monitoring Strip: Yes Absence of Tachy Systole: Yes - General Info Date of Service: 03/20/19 Admission Dx/Problem (Free Text): Patient Status Order with Admit Dx/Problem 03/20/19 00:15 Patient Status [ADT] Routine Admission Diagnosis/Problem Admission Diagnosis/Problem 03/20/19 08:25 28yo EDC 04/02/2019 38 1/7wks IOL due to hx LGA and IUFD O+, RI, GBS pos. Functional Status: Reports: Pain Controlled - Review of Systems General: Reports: No Symptoms HEENT: Reports: No Symptoms Pulmonary: Reports: No Symptoms Cardiovascular: Reports: No Symptoms Gastrointestinal: Reports: No Symptoms Genitourinary: Reports: No Symptoms Musculoskeletal: Reports: No Symptoms Skin: Reports: No Symptoms Neurological: Reports: No Symptoms Psychiatric: Reports: No Symptoms - Patient Data Weight - Most Recent: 133.81 kg Lab Results Last 24 Hours: Laboratory Results - last 24 hr 03/20/19 03/20/19 Range/Units 01:04 01:04 WBC 10.63 (4.0-11.0) K/uL RBC 4.29 L (4.30-5.90) M/uL Hgb 11.4 L (12.0-16.0) g/dL Hct 34.2 L (36.0-46.0) % MCV 79.7 L (80.0-98.0) fL MCH 26.6 L (27.0-32.0) pg MCHC 33.3 (31.0-37.0) g/dL RDW Std Deviation 39.1 (28.0-62.0) fl RDW Coeff of Enoc 14 (11.0-15.0) % Plt Count 163 (150-400) K/uL MPV 10.20 (7.40-12.00) fL Blood Type O POSITIVE Antibody Screen NEGATIVE Med Orders - Current: Current Medications Discontinued Medications Butorphanol Tartrate (Stadol) 1 mg IVPUSH Q1H PRN PRN Reason: Pain Carboprost Tromethamine (Hemabate Ds) 250 mcg IM ASDIRECTED PRN PRN Reason: Post Hemorrhage Fentanyl (Sublimaze) Confirm Administered Dose 100 mcg .ROUTE .STK-MED ONE Stop: 03/20/19 12:12 Ampicillin Sodium 2 gm/ Sodium (Chloride) 100 mls @ 200 mls/hr IV ONETIME ONE Stop: 03/20/19 01:29 Last Admin: 03/20/19 01:14 Dose: 200 mls/hr Ampicillin Sodium 1 gm/ Sodium (Chloride) 50 mls @ 100 mls/hr IV Q4H [facility] Last Admin: 03/20/19 13:28 Dose: 100 mls/hr Lactated Ringer's (Ringers, Lactated) 1,000 mls @ 150 mls/hr IV ASDIRECTED [facility] Last Admin: 03/20/19 16:33 Dose: 100 mls/hr Oxytocin/Sodium Chloride (Oxytocin 30 Unit/500 Ml-Ns) 30 unit in 500 mls @ 999 mls/hr IV TITRATE [facility] Oxytocin/Sodium Chloride (Oxytocin 30 Unit/500 Ml-Ns) 30 unit in 500 mls @ 2 mls/hr IV TITRATE [facility]; Protocol Last Titration: 03/20/19 17:15 Dose: 0 munits/min, 0 mls/hr Tranexamic Acid 1,000 mg/ (Sodium Chloride) 110 mls @ 660 mls/hr IV ONETIME PRN PRN Reason: Bleeding Fentanyl/Bupivacaine HCl (Xqbjnpyq-Glyww-Ge 2 Mcg/Ml-0.125%) Confirm Administered Dose 100 mls @ as directed .ROUTE .ApceraK-MED ONE Stop: 03/20/19 12:11 Lidocaine HCl (Xylocaine 1%) 50 ml INJECT ONETIME PRN PRN Reason: Laceration repair Lidocaine/Epinephrine (Lidocaine 1.5%-Epi 1:200,000) Confirm Administered Dose 5 ml IJ .STK-MED ONE Stop: 03/20/19 17:15 Methylergonovine Maleate (Methergine) 0.2 mg IM ASDIRECTED PRN PRN Reason: Post Hemorrhage Misoprostol (Cytotec) 200 mcg PO ONETIME PRN PRN Reason: Post Hemorrhage Misoprostol (Cytotec) 25 mcg VAG ONETIME PRN PRN Reason: Cervical Ripening Last Admin: 03/20/19 01:47 Dose: 25 mcg Misoprostol (Cytotec) 25 mcg VAG Q4H PRN PRN Reason: Cervical Ripening Last Admin: 03/20/19 06:16 Dose: 25 mcg Misoprostol (Cytotec) 25 mcg PO ONETIME PRN PRN Reason: Cervical Ripening Last Admin: 03/20/19 01:47 Dose: 25 mcg Misoprostol (Cytotec) 25 mcg PO Q4H PRN PRN Reason: Cervical Ripening Last Admin: 03/20/19 06:15 Dose: 25 mcg Nalbuphine HCl (Nubain) 10 mg IVPUSH Q1H PRN PRN Reason: Pain (severe 7-10) Ondansetron HCl (Zofran) 4 mg IVPUSH Q6H PRN PRN Reason: Nausea/Vomiting Sodium Chloride (Saline Flush) 10 ml FLUSH ASDIRECTED PRN PRN Reason: Keep Vein Open Sodium Chloride (Saline Flush) 2.5 ml FLUSH ASDIRECTED PRN PRN Reason: Keep Vein Open Sodium Chloride (Normal Saline) 10 ml IV ASDIRECTED PRN PRN Reason: IV Use Sterile Water (Sterile Water For Irrigation) 1,000 ml IRR ASDIRECTED PRN PRN Reason: delivery Terbutaline Sulfate (Brethine) 0.25 mg SUBCUT ASDIRECTED PRN PRN Reason: Tacysystole - Exam General: Alert, Oriented, No Acute Distress Lungs: Normal Respiratory Effort GI/Abdominal Exam: Soft, Non-Tender, No Distention, Pelvis Stable (Female) Exam: Normal External Exam, Normal Bimanual Exam, Vaginal Bleeding. No: Vaginal Lesions, Vaginal Tears Back Exam: Normal Inspection, Full Range of Motion Extremities: Normal Inspection, Normal Range of Motion, Non-Tender, Pedal Edema Skin: Warm, Dry, Intact Neurological: No New Focal Deficit, Normal Speech, Normal Tone Psy/Mental Status: Alert, Normal Affect, Normal Mood - Problem List & Annotations (1) Supervision of normal IUP (intrauterine ) in multigravida SNOMED Code(s): 776181534, 730121681, 594219833 Code(s): Z34.80 - ENCOUNTER FOR SUPRVSN OF NORMAL , UNSP TRIMESTER Status: Acute Priority: High Current Visit: Yes Qualifiers: Trimester: third trimester Qualified Code(s): Z34.83 - Encounter for supervision of other normal , third trimester (2) (normal spontaneous vaginal delivery) SNOMED Code(s): 02278778, 010286791 Code(s): O80 - ENCOUNTER FOR FULL-TERM UNCOMPLICATED DELIVERY Status: Acute Priority: High Current Visit: Yes - Problem List Review Problem List Initiated/Reviewed/Updated: Yes - My Orders Last 24 Hours: My Active Orders 03/20/19 17:46 May Shower [RC] ASDIRECTED Up ad Leydi [RC] ASDIRECTED Vital Signs [RC] PER UNIT ROUTINE Acetaminophen [Tylenol Extra Strength] 1,000 mg PO Q4H PRN Acetaminophen [Tylenol Extra Strength] 500 mg PO Q4H PRN Benzocaine/Menthol [Dermoplast Pain Relief 20%-0.5% [place]] 78 gm TOP ASDIRECTED PRN Bisacodyl [Dulcolax] 10 mg RECTAL ONETIME PRN Docusate Sodium [Colace] 100 mg PO BID PRN Ibuprofen [Motrin] 400 mg PO Q4H PRN Ibuprofen [Motrin] 800 mg PO Q6H PRN Lanolin [Lansinoh HPA] See Dose Instructions TOP ASDIRECTED PRN Carl Gandhi [Tucks] 1 pad TOP ASDIRECTED PRN oxyCODONE 5 mg PO Q2H PRN Assess Lochia [WOMSER] Per Unit Routine Assess Uterine Involution [WOMSER] Per Unit Routine Peripheral IV Discontinue [OM.PC] Routine Resuscitation Status Routine 03/21/19 Breakfast Regular Diet [DIET] - Plan Plan:: IOL A: 28yo EDC 04/02/2019 38 1/7wks IOL due to hx LGA and IUFD O+, RI, GBS pos. SVE /-2 AROM clear P: Admit, pitocin, epidural prn, anticipate . Dr Schmitt in room for AROM. Delivery A: of viable male, APGARS 8/8, wt pending, Intact, EBL 150cc, stable. P: Routine pp plan of care
--- NOTE | 2019-03-21 07:36 | PCM48HPAN ---
Post Anesthesia Note - EVALUATION WITHIN 48HRS OF ANESTHETIC Vital Signs in Normal Range: Yes Patient Participated in Evaluation: Yes Respiratory Function Stable: Yes Airway Patent: Yes Cardiovascular Function Stable: Yes Hydration Status Stable: Yes Pain Control Satisfactory: Yes Nausea and Vomiting Control Satisfactory: Yes Mental Status Recovered: Yes Vital Signs: Last Vital Signs Temp 36.4 C 03/21/19 07:22 Pulse 84 03/21/19 04:25 Resp 15 03/21/19 07:22 BP 147/84 H 03/21/19 07:22 Pulse Ox 97 03/21/19 07:22 - COMMENTS/OBSERVATIONS Free Text/Narrative:: Patient denies back pain, headaches. She has no n/v. Skin no erythema, and nontender to palpation. There were no apparent anesthetic complications at this time.
--- NOTE | 2019-03-21 08:24 | PCM.DCSUM1 ---
Discharge Summary - Hospital Course Free Text/Narrative:: Discharge home with . Follow up in 6 week for . Diagnosis: Stroke: No Modified Bergheim Scale: No Symptoms at All Modified Lonnie Scale Score: 0 - Discharge Data Discharge Date: 03/21/19 Discharge Disposition: Home, Self-Care 01 Condition: Good - Referral to Home Health Primary Care Physician: PCP None - Discharge Diagnosis/Problem(s) (1) Supervision of normal IUP (intrauterine ) in multigravida SNOMED Code(s): 796070163, 306235581, 443430168 ICD Code: Z34.80 - ENCOUNTER FOR SUPRVSN OF NORMAL , UNSP TRIMESTER Status: Acute Priority: High Current Visit: Yes Qualifiers: Trimester: third trimester Qualified Code(s): Z34.83 - Encounter for supervision of other normal , third trimester (2) (normal spontaneous vaginal delivery) SNOMED Code(s): 29189587, 292713339 ICD Code: O80 - ENCOUNTER FOR FULL-TERM UNCOMPLICATED DELIVERY Status: Acute Priority: High Current Visit: Yes - Patient Instructions Diet: Usual Diet as Tolerated Activity: As Tolerated, No Strenuous Activities, Rest and Relax Today Driving: May Drive Today Showering/Bathing: May Shower Notify Provider of: Fever, Increased Pain, Swelling and Redness, Nausea and/or Vomiting Other/Special Instructions: Discharge home with infant. Follow up in 6 week for . - Discharge Plan *PRESCRIPTION DRUG MONITORING PROGRAM REVIEWED*: Not Applicable *COPY OF PRESCRIPTION DRUG MONITORING REPORT IN PATIENT CLAUDIO: Not Applicable Prescriptions/Med Rec: Ibuprofen [Motrin] 800 mg PO Q6H PRN #90 tablet PRN Reason: Pain Home Medications: Home Meds Ibuprofen [Motrin] 800 mg PO Q6H PRN #90 tablet 03/21/19 [Rx] Oxygen Therapy Mode: Room Air Referrals: [facility] [Outside] Te Schmitt MD [Physician] - 04/30/19 9:30 am () - Discharge Summary/Plan Comment DC Time >30 min.: Yes - General Info Date of Service: 03/21/19 Admission Dx/Problem (Free Text: Patient Status Order with Admit Dx/Problem 03/20/19 00:15 Patient Status [ADT] Routine Admission Diagnosis/Problem Admission Diagnosis/Problem 03/20/19 08:25 28yo EDC 04/02/2019 38 /7wks IOL due to hx LGA and IUFD O+, RI, GBS pos. Functional Status: Reports: Pain Controlled, Tolerating Diet, Ambulating, Urinating - Review of Systems General: Reports: No Symptoms HEENT: Reports: No Symptoms Pulmonary: Reports: No Symptoms Cardiovascular: Reports: No Symptoms Gastrointestinal: Reports: No Symptoms Genitourinary: Reports: No Symptoms Musculoskeletal: Reports: No Symptoms Skin: Reports: No Symptoms Neurological: Reports: No Symptoms Psychiatric: Reports: No Symptoms - Patient Data Vitals - Most Recent: Last Vital Signs Temp 36.4 C 03/21/19 07:22 Pulse 84 03/21/19 04:25 Resp 15 03/21/19 07:22 BP 147/84 H 03/21/19 07:22 Pulse Ox 97 03/21/19 07:22 Weight - Most Recent: 133.81 kg Med Orders - Current: Current Medications Acetaminophen (Tylenol Extra Strength) 500 mg PO Q4H PRN PRN Reason: Pain Acetaminophen (Tylenol Extra Strength) 1,000 mg PO Q4H PRN PRN Reason: Pain Last Admin: 03/21/19 01:47 Dose: 1,000 mg Benzocaine/Menthol (Dermoplast Pain Relief 20%-0.5% [place]) 78 gm TOP ASDIRECTED PRN PRN Reason: Perineal Comfort Measure Bisacodyl (Dulcolax) 10 mg RECTAL ONETIME PRN PRN Reason: Constipation Docusate Sodium (Colace) 100 mg PO BID PRN PRN Reason: Constipation Emollient Ointment (Lansinoh Hpa) 0 gm TOP ASDIRECTED PRN PRN Reason: Sore Nipples Ibuprofen (Motrin) 400 mg PO Q4H PRN PRN Reason: Pain Ibuprofen (Motrin) 800 mg PO Q6H PRN PRN Reason: Pain Oxycodone HCl (Oxycodone) 5 mg PO Q2H PRN PRN Reason: Pain Witch Oksana (Tucks) 1 pad TOP ASDIRECTED PRN PRN Reason: comfort care Discontinued Medications Butorphanol Tartrate (Stadol) 1 mg IVPUSH Q1H PRN PRN Reason: Pain Carboprost Tromethamine (Hemabate Ds) 250 mcg IM ASDIRECTED PRN PRN Reason: Post Hemorrhage Fentanyl (Sublimaze) Confirm Administered Dose 100 mcg .ROUTE .STK-MED ONE Stop: 03/20/19 12:12 Ampicillin Sodium 2 gm/ Sodium (Chloride) 100 mls @ 200 mls/hr IV ONETIME ONE Stop: 03/20/19 01:29 Last Admin: 03/20/19 01:14 Dose: 200 mls/hr Ampicillin Sodium 1 gm/ Sodium (Chloride) 50 mls @ 100 mls/hr IV Q4H LILIA Last Admin: 03/20/19 13:28 Dose: 100 mls/hr Lactated Ringer's (Ringers, Lactated) 1,000 mls @ 150 mls/hr IV ASDIRECTED LILIA Last Admin: 03/20/19 16:33 Dose: 100 mls/hr Oxytocin/Sodium Chloride (Oxytocin 30 Unit/500 Ml-Ns) 30 unit in 500 mls @ 999 mls/hr IV TITRATE LILIA Oxytocin/Sodium Chloride (Oxytocin 30 Unit/500 Ml-Ns) 30 unit in 500 mls @ 2 mls/hr IV TITRATE LILIA; Protocol Last Titration: 03/20/19 17:15 Dose: 0 munits/min, 0 mls/hr Tranexamic Acid 1,000 mg/ (Sodium Chloride) 110 mls @ 660 mls/hr IV ONETIME PRN PRN Reason: Bleeding Fentanyl/Bupivacaine HCl ([id number]-Ljrct-Oz 2 Mcg/Ml-0.125%) Confirm Administered Dose 100 mls @ as directed .ROUTE .STK-MED ONE Stop: 03/20/19 12:11 Lidocaine HCl (Xylocaine 1%) 50 ml INJECT ONETIME PRN PRN Reason: Laceration repair Lidocaine/Epinephrine (Lidocaine 1.5%-Epi 1:200,000) Confirm Administered Dose 5 ml IJ .STK-MED ONE Stop: 03/20/19 17:15 Methylergonovine Maleate (Methergine) 0.2 mg IM ASDIRECTED PRN PRN Reason: Post Hemorrhage Misoprostol (Cytotec) 200 mcg PO ONETIME PRN PRN Reason: Post Hemorrhage Misoprostol (Cytotec) 25 mcg VAG ONETIME PRN PRN Reason: Cervical Ripening Last Admin: 03/20/19 01:47 Dose: 25 mcg Misoprostol (Cytotec) 25 mcg VAG Q4H PRN PRN Reason: Cervical Ripening Last Admin: 03/20/19 06:16 Dose: 25 mcg Misoprostol (Cytotec) 25 mcg PO ONETIME PRN PRN Reason: Cervical Ripening Last Admin: 03/20/19 01:47 Dose: 25 mcg Misoprostol (Cytotec) 25 mcg PO Q4H PRN PRN Reason: Cervical Ripening Last Admin: 03/20/19 06:15 Dose: 25 mcg Nalbuphine HCl (Nubain) 10 mg IVPUSH Q1H PRN PRN Reason: Pain (severe 7-10) Ondansetron HCl (Zofran) 4 mg IVPUSH Q6H PRN PRN Reason: Nausea/Vomiting Sodium Chloride (Saline Flush) 10 ml FLUSH ASDIRECTED PRN PRN Reason: Keep Vein Open Sodium Chloride (Saline Flush) 2.5 ml FLUSH ASDIRECTED PRN PRN Reason: Keep Vein Open Sodium Chloride (Normal Saline) 10 ml IV ASDIRECTED PRN PRN Reason: IV Use Sterile Water (Sterile Water For Irrigation) 1,000 ml IRR ASDIRECTED PRN PRN Reason: delivery Terbutaline Sulfate (Brethine) 0.25 mg SUBCUT ASDIRECTED PRN PRN Reason: Tacysystole - Exam General: Reports: Alert, Oriented, Cooperative, No Acute Distress Lungs: Reports: Clear to Auscultation, Normal Respiratory Effort Cardiovascular: Reports: Regular Rate, Regular Rhythm GI/Abdominal Exam: Soft, Non-Tender (Female) Exam: Deferred, Vaginal Bleeding Rectal (Female) Exam: Deferred Back Exam: Reports: Normal Inspection, Full Range of Motion Extremities: Normal Inspection, Normal Range of Motion, Non-Tender, No Pedal Edema, Normal Capillary Refill Skin: Reports: Warm, Dry, Intact Neurological: Reports: No New Focal Deficit, Normal Speech, Normal Tone, Strength Equal Bilateral, Sensation Intact Psy/Mental Status: Reports: Alert, Normal Affect, Normal Mood
== END 2019-03-21 19:50 | disposition home or self-care (01) | DRG 560 ==
LOC: MW.OBCHECK 00:11 → MW.OB 00:13 → OBSVTOIN 17:29 → MW.OB 17:29
PROVIDERS: ADMIT Obstetrics & Gynecology; ATTEND Obstetrics & Gynecology
PROC: 10E0XZZ Delivery of Products of Conception, External Approach (ICD-10-PCS; principal; 2019-03-20)
PROC: 10907ZC Drainage of Amniotic Fluid, Therapeutic from Products of Conception, Via Natural or Artificial Opening (ICD-10-PCS; 2019-03-20)
DX: O99.824 Streptococcus B carrier state complicating childbirth (principal); O99.214 Obesity complicating childbirth; E66.9 Obesity, unspecified; Z3A.38 38 weeks gestation of pregnancy; Z37.0 Single live birth
CPT/HCPCS: 36415; 51702; 59025; 59409; 85027; 86850; 86900; 86901; A9270-GY; J0290; J2590; J3010; J7030; J7050; J7120

== ENCOUNTER 2020-05-17 05:38 | Inpatient (IN) | payer BC ==
[2020-05-17] MEDS ORDERED: Sodium Chloride 0.9% 2.5 ML Syringe FLUSH PRN (06:07)
[2020-05-17] MEDS ORDERED: Ondansetron 4 MG Tab.DIS PO PRN (06:07)
[2020-05-17] MEDS ORDERED: Carboprost Tromethamine 250 MCG/1 ML Amp IM PRN (06:07)
[2020-05-17] MEDS ORDERED: Tranexamic Acid 1,000 MG in Sodium Chloride 0.9% 100 ML IV PRN (06:07)
[2020-05-17] MEDS ORDERED: Misoprostol 200 MCG Tab PO PRN (06:07)
[2020-05-17] MEDS ORDERED: hydrOXYzine HCl 25 MG Tab PO PRN (06:07)
[2020-05-17] MEDS ORDERED: Nalbuphine 10 MG/1 ML Vial IVPUSH PRN (06:07)
[2020-05-17] MEDS ORDERED: Ampicillin 2 GM in Sodium Chloride 0.9% 100 ML IV ONE (06:07)
[2020-05-17] MEDS ORDERED: Sodium Chloride 0.9% 10 ML Syringe FLUSH PRN (06:07)
[2020-05-17] MEDS ORDERED: Butorphanol 1 MG/ML SDV IVPUSH PRN (06:07)
[2020-05-17] MEDS ORDERED: Sodium Chloride 0.9% 10 ML SDV IV PRN (06:07)
[2020-05-17] MEDS ORDERED: Methylergonovine 0.2 MG/1 ML Amp IM PRN (06:07)
[2020-05-17] MEDS ORDERED: Water For Irrigation,Sterile 1,000 ML Container IRR PRN (06:07)
[2020-05-17] MEDS ORDERED: Lidocaine 1% 50 ML MDV INJECT PRN (06:07)
[2020-05-17] MEDS ORDERED: Oxytocin/0.9 % Sodium Chloride 30 UNIT/500 ML BAG IV SCH ×2 (06:15→10:45)
--- NOTE | 2020-05-17 06:17 | PCM.LDHP ---
L&D History of Present Illness - General Date of Service: 05/17/20 Admit Problem/Dx: Patient Status Order with Admit Dx/Problem 05/17/20 05:40 Patient Status [ADT] Routine Admission Diagnosis/Problem Admission Diagnosis/Problem 05/17/20 06:05 presenting to L&D with complaints of SROM; SVE 4-5 cm/50%/-3, soft, stretchy, midposition per nurse report; O+, Rubella immune, GBS positive (NKDA); hx preeclampsia; hx of demise at 33 weeks; morbid obesity Source of Information: Patient History Limitations: Reports: No Limitations - Related Data Allergies/Adverse Reactions: Allergies Allergy/AdvReac Type Severity Reaction Status Date / Time No Known Allergies Allergy Verified 02/27/19 14:51 Home Medications: Home Meds Ibuprofen [Motrin] 800 mg PO Q6H PRN #90 tablet 03/21/19 [Rx] Past Medical History Gastrointestinal History: Reports: Cholelithiasis 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: , 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 Endocrine/Metabolic History: Reports: Obesity/BMI 30+ - Infectious Disease History Infectious Disease History: Reports: Chicken Pox - Past Surgical History GI Surgical History: Reports: Cholecystectomy Female Surgical History: Reports: D&C Social & Family History - Family History HEENT: Reports: Cataract, Retinal Detachment Cardiac: Reports: Arrhythmia, Heart Failure, Heart Valve Replacement, Hypertension, Pacemaker Respiratory: Reports: COPD GI: Reports: Cholelithiasis, Inflammatory Bowel Disease, Irritable Bowel Syndrome OBGYN: Reports: Musculoskeletal: Reports: Arthritis, RA Neurological: Reports: CVA, Dementia, TIA Psychiatric: Reports: ADHD, Anxiety Endocrine/Metabolic: Reports: Diabetes, type II, Obesity/MBI 30+ Oncologic: Reports: Bladder, Hodgkin's Lymphoma, Skin - Caffeine Use Caffeine Use: Reports: Coffee, Soda H&P Review of Systems - Review of Systems: Review Of Systems: See Below General: Reports: No Symptoms HEENT: Reports: No Symptoms Pulmonary: Reports: No Symptoms Cardiovascular: Reports: No Symptoms Gastrointestinal: Reports: No Symptoms Genitourinary: Reports: No Symptoms Musculoskeletal: Reports: No Symptoms Skin: Reports: No Symptoms Psychiatric: Reports: No Symptoms Neurological: Reports: No Symptoms Hematologic/Lymphatic: Reports: No Symptoms Immunologic: Reports: No Symptoms L&D Exam - Exam Exam: See Below - OB Specific Movement: Active Heart Tones: Present Presentation: Vertex - Espinosa Score Espinosa Score Cervix Position: Midposition Espinosa Score Consistency: Soft Espinosa Score Effacement: 31-50% Espinosa Score Dilation: 3-4 cm Espinosa Score Infant's Station: -3 Espinosa Score Total: 6 - Exam General: Alert, Oriented, Cooperative Lungs: Normal Respiratory Effort Cardiovascular: Regular Rate, Regular Rhythm GI/Abdominal Exam: Soft, Non-Tender Rectal Exam: Deferred Genitourinary: Deferred Back Exam: Normal Inspection, Full Range of Motion Extremities: Normal Inspection, Normal Range of Motion, Non-Tender, Normal Capillary Refill Skin: Warm, Dry, Intact Psychiatric: Alert, Normal Affect, Normal Mood - Problem List (1) Obesity affecting in third trimester, antepartum SNOMED Code(s): 568915070741, 119745000864 ICD Code: O99.213 - OBESITY COMPLICATING , THIRD TRIMESTER Status: Acute Priority: High Current Visit: Yes (2) Supervision of normal IUP (intrauterine ) in multigravida SNOMED Code(s): 882767587, 585688087, 331102202 ICD Code: Z34.80 - ENCOUNTER FOR SUPRVSN OF NORMAL , UNSP TRIMESTER Status: Acute Priority: High Current Visit: No Qualifiers: Trimester: third trimester Qualified Code(s): Z34.83 - Encounter for supervision of other normal , third trimester Problem List Initiated/Reviewed/Updated: No Orders Last 24hrs: Active Orders 24 hr Category Date Time Status Patient Status [ADT] Routine ADT 05/17/20 05:40 Active Non Stress Test [RC] PER UNIT ROUTINE Care 05/17/20 05:40 Active Up ad Leydi [RC] ASDIRECTED Care 05/17/20 05:40 Active Vaginal Exam [RC] Click to Edit Care 05/17/20 05:40 Active Vital Signs [RC] PER UNIT ROUTINE Care 05/17/20 05:40 Active AMNISURE RUPTURE MEMBRAN [BF] Stat Lab 05/17/20 05:40 Ordered CORONAVIRUS COVID-19 PCR PHL Stat Lab 05/17/20 06:02 Ordered Resuscitation Status Routine Resus Stat 05/17/20 05:40 Ordered Assessment/Plan Comment:: Admit A: presenting to L&D with complaints of SROM; SVE 4-5 cm/50%/-3, soft, stretchy, midposition per nurse report; O+, Rubella immune, GBS positive (NKDA); hx preeclampsia; hx of demise at 33 weeks; morbid obesity P: Anticipate ; epidural PRN; Dr. Schmitt updated.
[2020-05-17] MEDS: Lactated Ringers 1,000 ML IV SCH ×4 (06:30→16:59)
[2020-05-17] MEDS ORDERED: Labetalol 100 MG/20 ML MDV IVPUSH ONE (07:32)
[2020-05-17] MEDS: Ampicillin 1 GM in Sodium Chloride 0.9% 50 ML IV SCH ×3 (11:02→15:05)
[2020-05-17] MEDS ORDERED: Ampicillin 1 GM Vial ONE (11:04)
[2020-05-17] MEDS ORDERED: Sodium Chloride 0.9% 50 ML ONE (11:04)
[2020-05-17 11:10] LABS: BLOOD UREA NITROGEN,BUN 6 mg/dL (7.0-18.0); CARBON DIOXIDE,CO2 22.8 mmol/L (21.0-32.0); CHLORIDE,CL 105 mmol/L (98-107); GLUCOSE RANDOM 87 mg/dL (74-106); POTASSIUM,K 4.2 mmol/L (3.5-5.1); SODIUM,NA 139 mmol/L (136-145)
[2020-05-17] MEDS ORDERED: Ropivacaine 0.2% PF 2 MG/ML 20 ML SDV ONE (13:06)
[2020-05-17] MEDS ORDERED: Bupivicaine/fentaNYL/NS 250 ML ONE (13:06)
--- NOTE | 2020-05-17 13:25 | PCM.PREANE ---
Preanesthetic Assessment - Procedure Proposed Procedure: labor epidural - Anesthesia/Transfusion/Family Hx Anesthesia History: Prior Anesthesia Without Reaction Family History of Anesthesia Reaction: No Transfusion History: No Prior Transfusion(s) Intubation History: Unknown - Physical Assessment Height: 5 ft 3 in Weight: 138.346 kg Mental Status: Alert & Oriented x3 Airway Class: Mallampati = 1 Dentition: Reports: Normal Dentition Thyro-Mental Finger Breadths: 3 Mouth Opening Finger Breadths: 3 ROM/Head Extension: Full Lungs: Clear to Auscultation, Normal Respiratory Effort Cardiovascular: Regular Rate, Regular Rhythm - Lab Values: Laboratory Last Values WBC 13.28 K/uL (4.0-11.0) H 05/17/20 07:00 RBC 4.43 M/uL (4.30-5.90) 05/17/20 07:00 Hgb 11.2 g/dL (12.0-16.0) L 05/17/20 07:00 Hct 35.7 % (36.0-46.0) L 05/17/20 07:00 MCV 80.6 fL (80.0-98.0) 05/17/20 07:00 MCH 25.3 pg (27.0-32.0) L 05/17/20 07:00 MCHC 31.4 g/dL (31.0-37.0) 05/17/20 07:00 RDW Std Deviation 42.2 fl (28.0-62.0) 05/17/20 07:00 RDW Coeff of Enoc 14 % (11.0-15.0) 05/17/20 07:00 Plt Count 243 K/uL (150-400) 05/17/20 07:00 MPV 9.20 fL (7.40-12.00) 05/17/20 07:00 Nucleated RBC % 0.0 /100WBC 05/17/20 07:00 Nucleated RBCs # 0 K/uL 05/17/20 07:00 Sodium 139 mmol/L (136-145) 05/17/20 07:00 Potassium 4.2 mmol/L (3.5-5.1) 05/17/20 07:00 Chloride 105 mmol/L (98-107) 05/17/20 07:00 Carbon Dioxide 22.8 mmol/L (21.0-32.0) 05/17/20 07:00 BUN 6 mg/dL (7.0-18.0) L 05/17/20 07:00 Creatinine 0.4 mg/dL (0.6-1.0) L 05/17/20 07:00 Est Cr Clr Drug Dosing 173.21 mL/min 05/17/20 07:00 Estimated GFR (MDRD) > 60.0 ml/min 05/17/20 07:00 Glucose 87 mg/dL (74-106) 05/17/20 07:00 Uric Acid 2.3 mg/dL (2.6-7.2) L 05/17/20 07:00 Calcium 8.5 mg/dL (8.5-10.1) 05/17/20 07:00 Total Bilirubin 0.2 mg/dL (0.2-1.0) 05/17/20 07:00 AST 19 IU/L (15-37) 05/17/20 07:00 ALT 16 IU/L (14-63) 05/17/20 07:00 Alkaline Phosphatase 216 U/L (46-116) H 05/17/20 07:00 Total Protein 5.8 g/dL (6.4-8.2) L 05/17/20 07:00 Albumin 2.2 g/dL (3.4-5.0) L 05/17/20 07:00 Globulin 3.6 g/dL (2.6-4.0) 05/17/20 07:00 Albumin/Globulin Ratio 0.6 (0.9-1.6) L 05/17/20 07:00 Ur Random Creatinine 149.9 mg/dL 05/17/20 09:10 U Random Total Protein 63.4 mg/dL (<11.9) H 05/17/20 09:10 Protein/Creatinin Ratio 0.4 05/17/20 09:10 Membrane Rupture POSITIVE 05/17/20 05:50 SARS-CoV-2 RNA (FIDEL) NEGATIVE (NEGATIVE) 05/17/20 05:50 Blood Type O POSITIVE 05/17/20 07:00 Antibody Screen NEGATIVE 05/17/20 07:00 - Allergies Allergies/Adverse Reactions: Allergies Allergy/AdvReac Type Severity Reaction Status Date / Time No Known Allergies Allergy Verified 02/27/19 14:51 - Blood Blood Available: Yes Product(s) Available: PRBC - Anesthesia Plan Pre-Op Medication Ordered: None - Acknowledgements Anesthesia Type Planned: Epidural Pt an Appropriate Candidate for the Planned Anesthesia: Yes Alternatives and Risks of Anesthesia Discussed w Pt/Guardian: Yes Pt/Guardian Understands and Agrees with Anesthesia Plan: Yes PreAnesthesia Questionnaire HEENT History: Reports: Impaired Vision Cardiovascular History: Reports: Other (See Below) Other Cardiovascular History: induced hypertension Gastrointestinal History: Reports: Cholelithiasis Genitourinary History: Reports: None 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: , 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 Endocrine/Metabolic History: Reports: Obesity/BMI 30+ - Infectious Disease History Infectious Disease History: Reports: Chicken Pox - Past Surgical History HEENT Surgical History: Reports: Oral Surgery Cardiovascular Surgical History: Reports: None GI Surgical History: Reports: Cholecystectomy Female Surgical History: Reports: D&C Endocrine Surgical History: Reports: None - SUBSTANCE USE Tobacco Use Status *Q: Former Tobacco User Tobacco Use Within Last Twelve Months: Cigarettes Recreational Drug Use History: No - HOME MEDS Home Medications: Home Meds Ibuprofen [Motrin] 800 mg PO Q6H PRN #90 tablet 03/21/19 [Rx] - CURRENT (IN HOUSE) MEDS Current Meds: Current Medications Butorphanol Tartrate (Stadol) 1 mg IVPUSH Q1H PRN PRN Reason: Pain Carboprost Tromethamine (Hemabate Ds) 250 mcg IM ASDIRECTED PRN PRN Reason: Post Hemorrhage Hydroxyzine HCl (Atarax) 50 mg PO Q6H PRN PRN Reason: Itching Lactated Ringer's (Ringers, Lactated) 1,000 mls @ 150 mls/hr IV ASDIRECTED [facility] Last Admin: 05/17/20 11:09 Dose: 150 mls/hr Documented by: Oxytocin/Sodium Chloride (Oxytocin 30 Unit/500 Ml-Ns) 30 unit in 500 mls @ 999 mls/hr IV TITRATE [facility] Tranexamic Acid 1,000 mg/ (Sodium Chloride) 110 mls @ 660 mls/hr IV ONETIME PRN PRN Reason: Bleeding Ampicillin Sodium 1 gm/ Sodium (Chloride) 50 mls @ 100 mls/hr IV Q4HR [facility] Last Admin: 05/17/20 12:35 Dose: Not Given Documented by: Oxytocin/Sodium Chloride (Oxytocin 30 Unit/500 Ml-Ns) 30 unit in 500 mls @ 2 mls/hr IV TITRATE LILIA; Protocol Last Infusion: 05/17/20 12:22 Dose: 2 munits/min, 2 mls/hr Documented by: Lidocaine HCl (Xylocaine 1%) 50 ml INJECT ONETIME PRN PRN Reason: Laceration repair Methylergonovine Maleate (Methergine) 0.2 mg IM ASDIRECTED PRN PRN Reason: Post Hemorrhage Misoprostol (Cytotec) 200 mcg PO ONETIME PRN PRN Reason: Post Hemorrhage Nalbuphine HCl (Nubain) 10 mg IVPUSH Q1H PRN PRN Reason: Pain (severe 7-10) Ondansetron HCl (Zofran Odt) 4 mg PO Q6H PRN PRN Reason: Nausea/Vomiting Sodium Chloride (Saline Flush) 10 ml FLUSH ASDIRECTED PRN PRN Reason: Keep Vein Open Sodium Chloride (Saline Flush) 2.5 ml FLUSH ASDIRECTED PRN PRN Reason: Keep Vein Open Sodium Chloride (Normal Saline) 10 ml IV ASDIRECTED PRN PRN Reason: IV Use Sterile Water (Sterile Water For Irrigation) 1,000 ml IRR ASDIRECTED PRN PRN Reason: delivery Discontinued Medications Ampicillin Sodium (Ampicillin) Confirm Administered Dose 1 gm .ROUTE .STK-MED ONE Stop: 05/17/20 11:05 Last Admin: 05/17/20 11:05 Dose: Not Given Documented by: Ampicillin Sodium 2 gm/ Sodium (Chloride) 100 mls @ 200 mls/hr IV ONETIME ONE Stop: 05/17/20 06:36 Last Admin: 05/17/20 06:50 Dose: 200 mls/hr Documented by: Sodium Chloride (Normal Saline) Confirm Administered Dose 50 mls @ as directed .ROUTE .STK-MED ONE Stop: 05/17/20 11:05 Last Admin: 05/17/20 11:05 Dose: Not Given Documented by: Fentanyl/Bupivacaine HCl (Fentanyl/Bupivacaine/Ns 2 Mcg-0.125% 250 Ml) Confirm Administered Dose 250 mls @ as directed .ROUTE .STK-MED ONE Stop: 05/17/20 13:07 Labetalol HCl (Normodyne) 20 mg IVPUSH ONETIME ONE; Protocol Stop: 05/17/20 07:33 Last Admin: 05/17/20 08:05 Dose: 20 mg Documented by: Ropivacaine (Naropin 0.2%) Confirm Administered Dose 20 ml .ROUTE .[facility] Stop: 05/17/20 13:07
[2020-05-17] MEDS ORDERED: Lanolin 100% Cream 7 GM Tube TOP PRN (18:47)
[2020-05-17] MEDS ORDERED: Docusate Sodium 100 MG Cap PO PRN (18:47)
[2020-05-17] MEDS ORDERED: Acetaminophen 500 MG Tab PO PRN (18:47)
[2020-05-17] MEDS ORDERED: Ibuprofen 400 MG Tab PO PRN (18:47)
[2020-05-17] MEDS ORDERED: Witch Hazel Medicated Pads 40/Jar TOP PRN (18:47)
[2020-05-17] MEDS ORDERED: Ibuprofen 800 MG Tab PO PRN (18:47)
[2020-05-17] MEDS ORDERED: Benzocaine/Menthol 20%-0.5% Spray 78 GM Cannister TOP PRN (18:47)
[2020-05-17] MEDS ORDERED: oxyCODONE 5 MG Tab PO PRN (18:47)
[2020-05-17] MEDS ORDERED: Bisacodyl 10 MG Supp RECTAL PRN (18:47)
[2020-05-17] MEDS: Acetaminophen 500 MG Tab PO PRN (21:30)
--- NOTE | 2020-05-18 06:50 | PCM.SN.2 ---
- Free Text/Narrative Note: call for low blood pressures. 1 Liter IV bolus ordered. Urine output 50 cc in 2 hours. Pts blood pressure increased to normal.
--- NOTE | 2020-05-18 07:15 | PCM48HPAN ---
Post Anesthesia Note - EVALUATION WITHIN 48HRS OF ANESTHETIC Vital Signs in Normal Range: Yes Patient Participated in Evaluation: Yes Respiratory Function Stable: Yes Airway Patent: Yes Cardiovascular Function Stable: Yes Hydration Status Stable: Yes Pain Control Satisfactory: Yes Nausea and Vomiting Control Satisfactory: Yes Mental Status Recovered: Yes Vital Signs: Last Vital Signs Temp 36.2 C 05/18/20 04:30 Pulse 93 05/18/20 04:30 Resp 16 05/18/20 04:30 BP 139/66 05/18/20 04:30 Pulse Ox 96 05/18/20 04:30
[2020-05-18] MEDS: Acetaminophen 500 MG Tab PO PRN ×3 (07:33→20:37)
[2020-05-19] MEDS: Acetaminophen 500 MG Tab PO PRN (04:43)
--- NOTE | 2020-05-19 08:20 | PCM.DCSUM1 ---
Discharge Summary - Hospital Course Free Text/Narrative:: Discharge home with baby. Follow up in the clinic in 6 weeks for routine visit; sooner, if needed. Diagnosis: Stroke: No Modified [place] Scale: No Symptoms at All (t) Modified [place] Scale Score: 0 - Discharge Data Discharge Date: 05/19/20 Discharge Disposition: Home, Self-Care 01 Condition: Good - Referral to Home Health Primary Care Physician: PCP None - Discharge Diagnosis/Problem(s) (1) Obesity affecting in third trimester, antepartum SNOMED Code(s): 894961806824, 479851320514 ICD Code: O99.213 - OBESITY COMPLICATING , THIRD TRIMESTER Status: Acute Priority: High Current Visit: Yes (2) Supervision of normal IUP (intrauterine ) in multigravida SNOMED Code(s): 251252091, 329151075, [id number] ICD Code: Z34.80 - ENCOUNTER FOR SUPRVSN OF NORMAL , UNSP TRIMESTER Status: Acute Priority: High Current Visit: No Qualifiers: Trimester: third trimester Qualified Code(s): Z34.83 - Encounter for supervision of other normal , third trimester - Patient Instructions Diet: Usual Diet as Tolerated, Regular Diet as Tolerated, Drink 8-10+ Glasses/Day Activity: As Tolerated, No Strenuous Activities, Rest and Relax Today Driving: May Drive Today Showering/Bathing: May Shower Notify Provider of: Fever, Increased Pain, Swelling and Redness, Drainage, Nausea and/or Vomiting - Discharge Plan *PRESCRIPTION DRUG MONITORING PROGRAM REVIEWED*: Not Applicable *COPY OF PRESCRIPTION DRUG MONITORING REPORT IN PATIENT CLAUDIO: Not Applicable Home Medications: Home Meds Ibuprofen [Motrin] 800 mg PO Q6H PRN #90 tablet 03/21/19 [Rx] Oxygen Therapy Mode: Room Air - Discharge Summary/Plan Comment DC Time >30 min.: Yes - General Info Date of Service: 05/19/20 Admission Dx/Problem (Free Text: Patient Status Order with Admit Dx/Problem 05/17/20 05:40 Patient Status [ADT] Routine Admission Diagnosis/Problem Admission Diagnosis/Problem 05/17/20 06:05 presenting to L&D with complaints of SROM; SVE 4-5 cm/50%/-3, soft, stretchy, midposition per nurse report; O+, Rubella immune, GBS positive (NKDA); hx preeclampsia; hx of demise at 33 weeks; morbid obesity Functional Status: Reports: Pain Controlled, Tolerating Diet, Ambulating, Urina ting - Review of Systems General: Reports: No Symptoms HEENT: Reports: No Symptoms Pulmonary: Reports: No Symptoms Cardiovascular: Reports: No Symptoms Gastrointestinal: Reports: No Symptoms Genitourinary: Reports: No Symptoms Musculoskeletal: Reports: No Symptoms Skin: Reports: No Symptoms Neurological: Reports: No Symptoms Psychiatric: Reports: No Symptoms - Patient Data Vitals - Most Recent: Last Vital Signs Temp 98.7 F 05/18/20 21:00 Pulse 96 05/18/20 21:00 Resp 18 05/18/20 21:00 BP 143/81 H 05/18/20 22:00 Pulse Ox 96 05/18/20 21:00 Weight - Most Recent: 305 lb Med Orders - Current: Current Medications Acetaminophen (Tylenol Extra Strength) 500 mg PO Q4H PRN PRN Reason: Pain Acetaminophen (Tylenol Extra Strength) 1,000 mg PO Q4H PRN PRN Reason: Pain Last Admin: 05/19/20 04:43 Dose: 1,000 mg Documented by: Benzocaine/Menthol (Dermoplast Pain Relief 20%-0.5% [place]) 78 gm TOP ASDIRECTED PRN PRN Reason: Perineal Comfort Measure Last Admin: 05/17/20 19:57 Dose: 1 canister Documented by: Bisacodyl (Dulcolax) 10 mg RECTAL ONETIME PRN PRN Reason: Constipation Docusate Sodium (Colace) 100 mg PO BID PRN PRN Reason: Constipation Last Admin: 05/17/20 19:56 Dose: 100 mg Documented by: Emollient Ointment (Lansinoh Hpa) 0 gm TOP ASDIRECTED PRN PRN Reason: Sore Nipples Ibuprofen (Motrin) 400 mg PO Q4H PRN PRN Reason: Pain Ibuprofen (Motrin) 800 mg PO Q6H PRN PRN Reason: Pain Oxycodone HCl (Oxycodone) 5 mg PO Q2H PRN PRN Reason: Pain Witch Oksana (Tucks) 1 pad TOP ASDIRECTED PRN PRN Reason: comfort care Last Admin: 05/17/20 19:57 Dose: 1 tub Documented by: Discontinued Medications Ampicillin Sodium (Ampicillin) Confirm Administered Dose 1 gm .ROUTE .STK-MED ONE Stop: 05/17/20 11:05 Last Admin: 05/17/20 11:05 Dose: Not Given Documented by: Butorphanol Tartrate (Stadol) 1 mg IVPUSH Q1H PRN PRN Reason: Pain Carboprost Tromethamine (Hemabate Ds) 250 mcg IM ASDIRECTED PRN PRN Reason: Post Hemorrhage Hydroxyzine HCl (Atarax) 50 mg PO Q6H PRN PRN Reason: Itching Lactated Ringer's (Ringers, Lactated) 1,000 mls @ 150 mls/hr IV ASDIRECTED LILIA Last Admin: 05/17/20 16:59 Dose: 999 mls/hr Documented by: Oxytocin/Sodium Chloride (Oxytocin 30 Unit/500 Ml-Ns) 30 unit in 500 mls @ 999 mls/hr IV TITRATE LILIA Tranexamic Acid 1,000 mg/ (Sodium Chloride) 110 mls @ 660 mls/hr IV ONETIME PRN PRN Reason: Bleeding Ampicillin Sodium 2 gm/ Sodium (Chloride) 100 mls @ 200 mls/hr IV ONETIME ONE Stop: 05/17/20 06:36 Last Admin: 05/17/20 06:50 Dose: 200 mls/hr Documented by: Ampicillin Sodium 1 gm/ Sodium (Chloride) 50 mls @ 100 mls/hr IV Q4HR [facility] Last Admin: 05/17/20 15:05 Dose: 100 mls/hr Documented by: Oxytocin/Sodium Chloride (Oxytocin 30 Unit/500 Ml-Ns) 30 unit in 500 mls @ 2 mls/hr IV TITRATE [facility]; Protocol Last Infusion: 05/17/20 15:30 Dose: 0 munits/min, 0 mls/hr Documented by: Sodium Chloride (Normal Saline) Confirm Administered Dose 50 mls @ as directed .ROUTE .STK-MED ONE Stop: 05/17/20 11:05 Last Admin: 05/17/20 11:05 Dose: Not Given Documented by: Fentanyl/Bupivacaine HCl (Fentanyl/Bupivacaine/Ns 2 Mcg-0.125% 250 Ml) Confirm Administered Dose 250 mls @ as directed .ROUTE .STK-MED ONE Stop: 05/17/20 13:07 Last Admin: 05/17/20 13:26 Dose: Not Given Documented by: Labetalol HCl (Normodyne) 20 mg IVPUSH ONETIME ONE; Protocol Stop: 05/17/20 07:33 Last Admin: 05/17/20 08:05 Dose: 20 mg Documented by: Lidocaine HCl (Xylocaine 1%) 50 ml INJECT ONETIME PRN PRN Reason: Laceration repair Methylergonovine Maleate (Methergine) 0.2 mg IM ASDIRECTED PRN PRN Reason: Post Hemorrhage Misoprostol (Cytotec) 200 mcg PO ONETIME PRN PRN Reason: Post Hemorrhage Nalbuphine HCl (Nubain) 10 mg IVPUSH Q1H PRN PRN Reason: Pain (severe 7-10) Ondansetron HCl (Zofran Odt) 4 mg PO Q6H PRN PRN Reason: Nausea/Vomiting Ropivacaine (Naropin 0.2%) Confirm Administered Dose 20 ml .ROUTE .K-MED ONE Stop: 05/17/20 13:07 Last Admin: 05/17/20 13:26 Dose: Not Given Documented by: Sodium Chloride (Saline Flush) 10 ml FLUSH ASDIRECTED PRN PRN Reason: Keep Vein Open Sodium Chloride (Saline Flush) 2.5 ml FLUSH ASDIRECTED PRN PRN Reason: Keep Vein Open Sodium Chloride (Normal Saline) 10 ml IV ASDIRECTED PRN PRN Reason: IV Use Sterile Water (Sterile Water For Irrigation) 1,000 ml IRR ASDIRECTED PRN PRN Reason: delivery - Exam General: Reports: Alert, Oriented, Cooperative, No Acute Distress Lungs: Reports: Normal Respiratory Effort Cardiovascular: Reports: Regular Rate, Regular Rhythm GI/Abdominal Exam: Soft, Non-Tender (Female) Exam: Deferred Rectal (Female) Exam: Deferred Back Exam: Reports: Normal Inspection, Full Range of Motion Extremities: Normal Inspection, Normal Range of Motion, Non-Tender, Normal Capillary Refill Skin: Reports: Warm, Dry, Intact Neurological: Reports: Normal Speech, Normal Tone Psy/Mental Status: Reports: Alert, Normal Affect, Normal Mood
--- NOTE | 2020-05-19 09:23 | OR ---
SURGEON: Te Schmitt MD DATE OF PROCEDURE: Ms. Alfonso is 29-year-old. She is para 3-0-0-2. Her first ended in demise. However, she is followed in our office primarily by me in this . Her GBS status was positive. The patient's diabetes screen was negative. Her is complicated by obesity. The patient is 38+ weeks. She is admitted with spontaneous rupture of the membrane this morning, and she started on antibiotic appropriately. She had irregular contractions. She progress slowly. She had epidural anesthesia for labor analgesia. We tried to start her on Pitocin, but fetus did not tolerate the Pitocin. She is having some cord compression and variable deceleration, so we let the patient labor on her own. She rather progressed slowly to 9 with anterior rim, and at that time, I evaluated her. She was occipitoposterior. Because of the repeat variable deceleration, we elected to do a vacuum extraction, and the [place] vacuum extraction was performed. With the patient pushing and me pulling, I was able to deliver the fetus in an occipitoposterior without any problem. The fetus cried immediately. score and weight are not available at this time. The placenta delivered spontaneous, complete, and intact and that the perineum was intact. There was no laceration, labial, vaginal, or perineal. Estimated blood loss is 350 to 400 mL. heart rate was category 1 with variable deceleration due to cord compression. There was no complication in the labor and in the delivery process of this patient. ISAÍAS / MECHE /[id number]
== END 2020-05-19 13:00 | disposition home or self-care (01) | DRG 560 ==
LOC: MW.OBCHECK 05:38 → MW.OB 05:39 → MW.OBCHECK 06:07 → OBSVTOIN 18:47 → MW.OB 23:44
PROVIDERS: ADMIT Obstetrics & Gynecology; ATTEND Nurse Practitioner Women's Health
PROC: 10D07Z6 Extraction of Products of Conception, Vacuum, Via Natural or Artificial Opening (ICD-10-PCS; principal; 2020-05-17)
PROC: 3E0R3BZ Introduction of Anesthetic Agent into Spinal Canal, Percutaneous Approach (ICD-10-PCS; 2020-05-17)
PROC: 3E033VJ Introduction of Other Hormone into Peripheral Vein, Percutaneous Approach (ICD-10-PCS; 2020-05-17)
DX: O99.214 Obesity complicating childbirth (principal); Z3A.38 38 weeks gestation of pregnancy; Z37.0 Single live birth; O99.824 Streptococcus B carrier state complicating childbirth; E66.01 Morbid (severe) obesity due to excess calories; O76 Abnormality in fetal heart rate and rhythm complicating labor and delivery; O69.2XX0 Labor and delivery complicated by other cord entanglement, with compression, not applicable or unspecified; Z20.828 Contact with and (suspected) exposure to other viral communicable diseases
CPT/HCPCS: 01967; 36415; 51702; 59025; 59409; 80053; 82570; 84112; 84156; 84550; 85014; 85018; 85027; 86592; 86850; 86900; 86901; A9270-GY; J0290; J2590; J2795; J3010; J3490; J7050; J7120; U0002

== ENCOUNTER 2023-10-29 12:56 | Emergency (ER) | payer BC ==
[2023-10-29] MEDS: Dexamethasone 4 MG Tab PO STA (13:49)
== END 2023-10-29 13:54 | disposition home or self-care (01) ==
LOC: MW.ED 12:56
DX: J03.90 Acute tonsillitis, unspecified (principal); Z75.8 Other problems related to medical facilities and other health care; E66.9 Obesity, unspecified; Z90.49 Acquired absence of other specified parts of digestive tract; Z68.43 Body mass index [BMI] 50.0-59.9, adult
CPT/HCPCS: 99282; J8540; 99283

== ENCOUNTER 2023-12-17 16:38 | Emergency (ER) | payer BC ==
[2023-12-17] MEDS: Dexamethasone 4 MG Tab PO ONE (18:01)
== END 2023-12-17 18:04 | disposition home or self-care (01) ==
LOC: MW.ED 16:38
DX: J02.9 Acute pharyngitis, unspecified (principal); E66.9 Obesity, unspecified; Z68.43 Body mass index [BMI] 50.0-59.9, adult; Z90.49 Acquired absence of other specified parts of digestive tract
CPT/HCPCS: 87651; 99283; J8540